=== PATIENT | female | born 1975 | race Caucasian/White ===

== ENCOUNTER 2022-09-13 18:57 | Emergency (ER) | payer OTHER, SELFPAY ==
[2022-09-13 19:04] VITALS: BP 129/83; PULSE 91; RESP 18; TEMP 36.7; O2SAT 95; BMI 51.1
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
[2022-09-13] MEDS: ONDANSETRON PF 4 MG/2 ML VIAL IV (19:31)
[2022-09-13] MEDS: 0.9 % SODIUM CHLORIDE 1,000 ML 1000 ML IV (19:31)
[2022-09-13] MEDS: MORPHINE SULFATE 4 MG/ML VIAL IV ×2 (19:31→22:07)
[2022-09-13 20:01] LABS: Basophils Absolute Auto 0.1 10^3/uL (0.0-0.1); Basophils Percent Auto 0.9 % (0.2-2.0); Eosinophils Absolute Auto 0.2 10^3/uL (0.0-0.7); Eosinophils Percent Auto 1.6 % (0.9-7.0); Hematocrit 43.2 % (36.0-48.0); Hemoglobin 14.8 g/dL (12.0-16.0); Immature Granulocytes Abs Auto 0.04 10^3/uL (0.00-0.03); Immature Granulocytes Pct Auto 0.4 % (0.0-0.5); Lymphocytes Absolute Auto 2.9 10^3/uL (1.2-3.8); Lymphocytes Percent Auto 28.1 % (20.5-60.0); Mean Corpuscular HGB Conc 34.3 g/dL (29.9-35.2); Mean Corpuscular Hemoglobin 31.7 pg (26.7-34.0); Mean Corpuscular Volume 92.5 fL (81.0-99.0); Mean Platelet Volume 10.1 fL (9.5-13.5); Monocytes Absolute Auto 0.4 10^3/uL (0.3-0.8); Monocytes Percent Auto 4.2 % (1.7-12.0); Neutrophils Absolute Auto 6.8 10^3/uL (1.4-6.5); Neutrophils Percent Auto 64.8 % (43.0-75.0); Platelet Count 291 10^3/uL (150-450); Red Blood Count 4.67 10^6/uL (4.20-5.40); Red Cell Distribution Width 12.9 % (11.0-15.0); White Blood Count 10.4 10^3/uL (4.0-11.0)
[2022-09-13 20:23] LABS: Alanine Aminotransferase 18 U/L (14-59); Albumin Globulin Ratio 1.2; Albumin Level 3.8 g/dL (3.4-5.0); Alkaline Phosphatase 93 U/L (46-116); Anion Gap 13.5; Aspartate Amino Transferase 53 U/L (15-37); Bilirubin Total 0.2 mg/dL (0.2-1.0); Calcium 8.9 mg/dL (8.5-10.1); Carbon Dioxide 26.1 mmol/L (21.0-32.0); Chloride 106 mmol/L (98-107); Estimated GFR (African America >60 (>=60); Estimated GFR (Non-African Ame >60 (>=60); Ethanol 183 mg/dL; Globulin 3.3 g/dL; Glucose 117 mg/dL (74-106); Sodium 143 mmol/L (136-145); Total Protein 7.1 g/dL (6.4-8.2); Troponin I High Sensitivity 7.6 pg/mL (4.0-51.3)
[2022-09-13 20:26] LABS: Potassium 2.6 mmol/L (3.5-5.1)
[2022-09-13] MEDS: ADACEL DIPH,PERTUSS(ACELL),TET VAC/PF 0.5 ML ADULT SYRINGE IM (20:26)
[2022-09-13] MEDS: POTASSIUM CHLORIDE 10 MEQ ER TABLET 40 MEQ PO (22:07)
[2022-09-13] MEDS: BACITRACIN OINTMENT 28.4 GM TUBE 1 APPLIC TOPICAL (23:04)
--- NOTE | 2022-09-13 23:21 | PC.NURSE ---
Patient sutures to right little finger dressed with bacitracin, telfa and john taped with 4th digit. moderate bleeding controlled. abrasions to right knee, right hands, left elbow all had bacitracin applied and dressed with sterile dressing.
== END 2022-09-13 23:15 | disposition home or self-care (01) ==
PROVIDERS: Emergency Provider Emergency Medicine; PCP Family Medicine
DX: S61.216A Laceration without foreign body of right little finger without damage to nail, initial encounter (principal); S01.512A Laceration without foreign body of oral cavity, initial encounter; S00.81XA Abrasion of other part of head, initial encounter; S60.511A Abrasion of right hand, initial encounter; S50.312A Abrasion of left elbow, initial encounter; S50.311A Abrasion of right elbow, initial encounter; S80.212A Abrasion, left knee, initial encounter; S80.211A Abrasion, right knee, initial encounter; T14.8XXA Other injury of unspecified body region, initial encounter; E87.6 Hypokalemia; F10.129 Alcohol abuse with intoxication, unspecified; Y90.6 Blood alcohol level of 120-199 mg/100 ml; F17.210 Nicotine dependence, cigarettes, uncomplicated; Z23 Encounter for immunization; Z79.01 Long term (current) use of anticoagulants
CPT/HCPCS: 12002; 12011; 36415; 70450; 70486; 71045; 72125; 73070; 73100; 73120; 73560; 80053; 80320; 84484; 85025; 90471; 90715; 96374; 96375; 96376; 99285

== ENCOUNTER 2022-09-26 10:25 | Outpatient (OUT) | payer OTHER, SELFPAY ==
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
== END 2022-09-26 10:26 | disposition home or self-care (01) ==
LOC: RAD 10:25
PROVIDERS: PCP Family Medicine; Visit Provider Nurse Practitioner Family
DX: M79.632 Pain in left forearm (principal)
CPT/HCPCS: 73090

== ENCOUNTER 2022-10-06 20:36 | Emergency (ER) | payer OTHER, SELFPAY ==
[2022-10-06 20:41] VITALS: BP 147/100; PULSE 80; RESP 16; TEMP 36.7; O2SAT 95; BMI 23.3
--- NOTE | 2022-10-06 20:50 | XR_ITS ---
The [address] [address] Patient Name: MARLENE WIGGINS MRN: [id number] date: 1975 Sex: F Assigned Patient Location: ER Current Patient Location: ER Accession/Order Number: [id number] Exam Date: 10/06/2022 20:58 Report Date: 10/06/2022 21:36 At the request of: KATHERINE GARCIA Procedure: XR acute abdomen series EXAM: XR acute abdomen series HISTORY: Vomiting COMPARISON: None. TECHNIQUE: 3 AP radiographs of the chest, abdomen and pelvis FINDINGS: CHEST: No pneumothorax, pleural effusion or consolidation. Normal heart size. No acute osseous abnormality. ABDOMEN/PELVIS: Surgical clips project over the right upper quadrant. Moderate colonic stool burden with a nonobstructive bowel gas pattern. No intra-abdominal free air. No intra-abdominal stone or calcification. No acute osseous abnormality of the abdomen or pelvis. XR/XR acute abdomen series IMPRESSION: No acute cardiopulmonary process. Moderate colonic stool burden with a nonobstructive bowel gas pattern. Electronically authenticated by: ENEIDA WOO Date: 10/06/2022 21:36
--- NOTE | 2022-10-06 20:51 | ED.GENADUL1 ---
HPI - General Adult General Chief complaint: Nausea/Vomiting/Diarrhea Stated complaint: VOMITTING BILE Time Seen by Provider: 10/06/22 20:36 Source: patient Mode of arrival: walk-in History of Present Illness HPI narrative: patient is a 47-year-old female who presents to the emergency department for the evaluation of nausea and vomiting for the last day. She states yesterday she made tuna noodle casserole for dinner and approximately one hour after eating she developed multiple episodes of emesis and cramping across the upper abdomen. She has had a previous hysterectomy and previous cholecystectomy. She reports chills but has not had any objective fevers. She denies diarrhea or urinary symptoms. She has no significant abdominal pain at this time. No flank or back pain. She states she continues to vomit bile today. No medications prior to arrival. No sick contacts in the home. She denies cough, congestion or other flulike illness Related Data Home Medications Medication Instructions Recorded Confirmed aspirin 81 mg chewable tablet 81 mg PO DAILY 10/06/22 10/06/22 cyclobenzaprine 5 mg tablet 5 mg PO DAILY 10/06/22 10/06/22 fluticasone propionate 50 2 spray intranasal DAILY 10/06/22 10/06/22 mcg/actuation nasal spray,suspension hydrochlorothiazide 25 mg tablet 25 mg PO DAILY 10/06/22 10/06/22 ibuprofen 600 mg tablet 600 mg PO DAILY 10/06/22 10/06/22 omeprazole 40 mg capsule,delayed 40 mg PO DAILY 10/06/22 10/06/22 release potassium chloride 20 mEq 20 meq PO DAILY 10/06/22 10/06/22 tablet,extended release Previous Rx's Medication Instructions Recorded famotidine 20 mg tablet (Pepcid) 20 mg PO BID #10 tabs 10/06/22 ondansetron 4 mg disintegrating 4 mg PO Q6H PRN nausea and 10/06/22 tablet vomiting #12 tabs polyethylene glycol 3350 17 17 g PO DAILY #119 grams 10/06/22 gram/dose oral powder (Miralax) Allergies Allergy/AdvReac Type Severity Reaction Status Date / Time latex Allergy Verified 10/06/22 20:47 Penicillins Allergy Verified 10/06/22 20:47 CITREX Allergy Uncoded 10/06/22 20:47 Review of Systems ROS Constitutional Reports: chills; Denies: fever Ears, nose, mouth, and throat Denies: throat pain Cardiovascular Denies: chest pain Respiratory Denies: shortness of breath or cough Gastrointestinal Reports: abdominal pain, nausea and vomiting; Denies: diarrhea Genitourinary Denies: painful urination Musculoskeletal Denies: back pain or neck pain Integumentary/Breast Denies: rash Neurological Denies: headache PFSH PFSH Social History Smoking status: Current every day smoker Exam Narrative Exam Narrative: Gen.: Awake, alert, in no distress Head: Normocephalic, atraumatic ENT: Moist mucous membranes Respiratory: No respiratory distress, lungs clear bilaterally Cardio: Regular rate and rhythm Gastrointestinal: Abdomen is soft, nondistended and minimally tender in the epigastrium with no guarding or rebound Extremities: Moves extremities equally Psych: Normal mood and affect Neuro: No focal neuro deficit Skin: Warm, dry, intact Constitutional Vital Signs, click to edit/add: Last Vital Signs Temp 98.1 F 10/06/22 20:41 Pulse 80 10/06/22 20:41 Resp 16 10/06/22 20:41 BP 147/100 H 10/06/22 20:41 Pulse Ox 95 10/06/22 20:41 O2 Del Method Room Air 10/06/22 20:41 Course Vital Signs Vital signs: Vital Signs Temperature 98.1 F 10/06/22 20:41 Pulse Rate 80 10/06/22 20:41 Respiratory Rate 16 10/06/22 20:41 Blood Pressure 147/100 H 10/06/22 20:41 Pulse Oximetry 95 10/06/22 20:41 Oxygen Delivery Method Room Air 10/06/22 20:41 Temperature 98.1 F 10/06/22 20:41 Pulse Rate 80 10/06/22 20:41 Respiratory Rate 16 10/06/22 20:41 Blood Pressure 147/100 H 10/06/22 20:41 Pulse Oximetry 95 10/06/22 20:41 Oxygen Delivery Method Room Air 10/06/22 20:41 Medical Decision Making MDM Narrative Medical decision making narrative: patient treated with IV fluids, Zofran, Pepcid. Lab studies show hypokalemia, patient takes potassium supplementation daily and her previous potassium was 2.6 in this emergency department on her last visit. nausea improved and she was able to tolerate the oral potassium supplementation in the Emergency Room. She will be discharged home with Ines Pepcid. Her abdominal x-rays also show moderate stool burden so she is encouraged to take MiraLAX [id number] for this. Abdomen is soft and benign in the Emergency Room. Follow-up with PCP and return to the Emergency Room if symptoms change or worsen. at time of discharge, patient states that she still has Vicryl sutures in her lower lip from her previous Emergency Room visit when a running suture was placed for a lip laceration. Using forceps and suture removal scissors, I removed the Vicryl suture that has been in place for three weeks. There was a small area of bleeding after removing the Vicryl sutures, no dehiscence or open lacerations noted. No evidence of wound infection Medical Records Medical records reviewed: Yes I reviewed the patient's medical records Lab Data Lab results reviewed: Yes I reviewed the patient's lab results Labs: Lab Results 10/06/22 Range/Units 20:45 WBC 11.0 (4.0-11.0) 10^3/uL RBC 5.07 (4.20-5.40) 10^6/uL Hgb 15.8 (12.0-16.0) g/dL Hct 46.6 (36.0-48.0) % MCV 91.9 (81.0-99.0) fL MCH 31.2 (26.7-34.0) pg MCHC 33.9 (29.9-35.2) g/dL RDW 13.2 (11.0-15.0) % Plt Count 301 (150-450) 10^3/uL MPV 10.2 (9.5-13.5) fL Neut % (Auto) 81.3 H (43.0-75.0) % Lymph % (Auto) 14.2 L (20.5-60.0) % Armstrong % (Auto) 3.7 (1.7-12.0) % Eos % (Auto) 0.1 L (0.9-7.0) % Baso % (Auto) 0.3 (0.2-2.0) % Neut # (Auto) 9.0 H (1.4-6.5) 10^3/uL Lymph # (Auto) 1.6 (1.2-3.8) 10^3/uL Armstrong # (Auto) 0.4 (0.3-0.8) 10^3/uL Eos # (Auto) 0.0 (0.0-0.7) 10^3/uL Baso # (Auto) 0.0 (0.0-0.1) 10^3/uL Abs Immat Gran (auto) 0.04 H (0.00-0.03) 10^3/uL Imm/Tot Granulo (auto) 0.4 (0.0-0.5) % Sodium 142 (136-145) mmol/L Potassium 2.9 L* (3.5-5.1) mmol/L Chloride 103 (98-107) mmol/L Carbon Dioxide 30.4 (21.0-32.0) mmol/L Anion Gap 11.5 BUN 19.0 H (7.0-18.0) mg/dL Creatinine 0.82 (0.55-1.02) mg/dL Est GFR ( Amer) >60 (>=60) Est GFR (Non-Af Amer) >60 (>=60) BUN/Creatinine Ratio 23.2 Glucose 126 H (74-106) mg/dL Lactate 1.4 (0.4-2.0) mmol/L Calcium 9.6 (8.5-10.1) mg/dL Total Bilirubin 0.7 (0.2-1.0) mg/dL AST 12 L (15-37) U/L ALT 22 (14-59) U/L Alkaline Phosphatase 76 (46-116) U/L Total Protein 8.1 (6.4-8.2) g/dL Albumin 4.2 (3.4-5.0) g/dL Globulin 3.9 g/dL Albumin/Globulin Ratio 1.1 Lipase 82.0 (73.0-393.0) U/L Imaging Data Abdominal x-ray: Attestation: I have reviewed the pertinent imaging results. Radiologist's impression: Procedure: XR acute abdomen series EXAM: XR acute abdomen series HISTORY: Vomiting COMPARISON: None. TECHNIQUE: 3 AP radiographs of the chest, abdomen and pelvis FINDINGS: CHEST: No pneumothorax, pleural effusion or consolidation. Normal heart size. No acute osseous abnormality. ABDOMEN/PELVIS: Surgical clips project over the right upper quadrant. Moderate colonic stool burden with a nonobstructive bowel gas pattern. No intra-abdominal free air. No intra-abdominal stone or calcification. No acute osseous abnormality of the abdomen or pelvis. IMPRESSION: No acute cardiopulmonary process. Moderate colonic stool burden with a nonobstructive bowel gas pattern. Electronically authenticated by: ENEIDA WOO Date: 10/06/2022 21:36 Discharge Plan Discharge Chief Complaint: Nausea/Vomiting/Diarrhea Clinical Impression: Nausea and vomiting, Acute hypokalemia Patient Disposition: Home, Self-Care Time of Disposition Decision: 21:41 Condition: Good Prescriptions / Home Meds: New famotidine [Pepcid] 20 mg tablet 20 mg PO BID Qty: 10 0RF ondansetron 4 mg tablet,disintegrating 4 mg PO Q6H PRN (Reason: nausea and vomiting) Qty: 12 0RF polyethylene glycol 3350 [Miralax] 17 gram/dose powder 17 g PO DAILY Qty: 119 0RF No Action aspirin 81 mg tablet,chewable 81 mg PO DAILY fluticasone propionate 50 mcg/actuation spray,suspension 2 spray INTRANASAL DAILY hydrochlorothiazide 25 mg tablet 25 mg PO DAILY ibuprofen 600 mg tablet 600 mg PO DAILY omeprazole 40 mg capsule,delayed release(DR/EC) 40 mg PO DAILY cyclobenzaprine 5 mg tablet 5 mg PO DAILY potassium chloride 20 mEq tablet extended release 20 meq PO DAILY Instructions: Hypokalemia (ED), Acute Nausea and Vomiting (DC) Stand Alone Forms: Portal Instructions Referrals: Mahin Boone MD [Primary Care Provider] - 1 week Discharge Date/Time: 10/06/22 21:57
[2022-10-06 20:59] LABS: Basophils Percent Auto 0.3 % (0.2-2.0); Eosinophils Percent Auto 0.1 % (0.9-7.0); Hematocrit 46.6 % (36.0-48.0); Hemoglobin 15.8 g/dL (12.0-16.0); Immature Granulocytes Abs Auto 0.04 10^3/uL (0.00-0.03); Immature Granulocytes Pct Auto 0.4 % (0.0-0.5); Lymphocytes Absolute Auto 1.6 10^3/uL (1.2-3.8); Lymphocytes Percent Auto 14.2 % (20.5-60.0); Mean Corpuscular HGB Conc 33.9 g/dL (29.9-35.2); Mean Corpuscular Hemoglobin 31.2 pg (26.7-34.0); Mean Corpuscular Volume 91.9 fL (81.0-99.0); Mean Platelet Volume 10.2 fL (9.5-13.5); Monocytes Absolute Auto 0.4 10^3/uL (0.3-0.8); Monocytes Percent Auto 3.7 % (1.7-12.0); Neutrophils Percent Auto 81.3 % (43.0-75.0); Platelet Count 301 10^3/uL (150-450); Red Blood Count 5.07 10^6/uL (4.20-5.40); Red Cell Distribution Width 13.2 % (11.0-15.0)
[2022-10-06] MEDS: FAMOTIDINE/PF 20 MG/2 ML VIAL IV (21:07)
[2022-10-06] MEDS: ONDANSETRON PF 4 MG/2 ML VIAL IV (21:07)
[2022-10-06] MEDS: 0.9 % SODIUM CHLORIDE 1,000 ML 999 ML IV (21:08)
[2022-10-06 21:09] LABS: Alanine Aminotransferase 22 U/L (14-59); Albumin Globulin Ratio 1.1; Albumin Level 4.2 g/dL (3.4-5.0); Alkaline Phosphatase 76 U/L (46-116); Anion Gap 11.5; Aspartate Amino Transferase 12 U/L (15-37); BUN Creatinine Ratio 23.2; Bilirubin Total 0.7 mg/dL (0.2-1.0); Calcium 9.6 mg/dL (8.5-10.1); Carbon Dioxide 30.4 mmol/L (21.0-32.0); Chloride 103 mmol/L (98-107); Estimated GFR (African America >60 (>=60); Estimated GFR (Non-African Ame >60 (>=60); Globulin 3.9 g/dL; Glucose 126 mg/dL (74-106); Sodium 142 mmol/L (136-145); Total Protein 8.1 g/dL (6.4-8.2)
[2022-10-06 21:12] LABS: Lactate/Lactic Acid 1.4 mmol/L (0.4-2.0)
[2022-10-06 21:13] LABS: Potassium 2.9 mmol/L (3.5-5.1)
[2022-10-06] MEDS: POTASSIUM CHLORIDE 10 MEQ ER TABLET 40 MEQ PO (21:33)
== END 2022-10-06 21:57 | disposition home or self-care (01) ==
PROVIDERS: Physician Assistant; Emergency Provider Emergency Medicine; PCP Family Medicine
DX: E87.6 Hypokalemia (principal); R11.2 Nausea with vomiting, unspecified; Z79.899 Other long term (current) drug therapy; Z79.82 Long term (current) use of aspirin; F17.210 Nicotine dependence, cigarettes, uncomplicated
CPT/HCPCS: 36415; 74022; 80053; 83605; 83690; 85025; 96374; 96375; 99285

== ENCOUNTER 2022-11-07 11:33 | Emergency (ER) | payer OTHER, SELFPAY ==
[2022-11-07 11:39] VITALS: BP 142/84; PULSE 70; RESP 16; TEMP 36.5; O2SAT 97; BMI 23.2
--- NOTE | 2022-11-07 12:21 | ED_ITS ---
HPI - General Adult General Chief complaint: Ear Stated complaint: right ear pain Time Seen by Provider: 11/07/22 11:44 Source: patient and family Mode of arrival: walk-in Limitations: no limitations History of Present Illness HPI narrative: Patient is a 47-year-old female who is presenting to the Emergency Room with chief complaint of right ear ache/pain since last . Patient has some mild right facial pain as well. Patient has been taking sinus congestion medication, Flonase, also using Motrin and Tylenol. Patient's been using ALLERGY medication as well. Patient did have traumatic fall weeks ago with facial injuries, nothing acute. Patient has no redness to the right ear. Patient has no new recent trauma or fall. Patient was due to have a cavity filled approximately 6 weeks ago when patient had traumatic injury, a cavity repair was canceled secondary to facial injury. Patient multiple stitches to her lower lip. Patient has no chest pain or shortness of breath. No fever or chills. No other acute complaints. Patient is here with her fianc? at bedside. Patient does not have ENT to follow-up or One that she has seen previously. No nausea, vomiting, diarrhea, rash, or any other acute complaints. . All systems are negative except as noted/marked. All systems reviewed and otherwise negative. . Nurses note and vital signs reviewed and patient is not hypoxic. General: The patient appears well and in no apparent distress. Patient is resting comfortably on cart. Patient is not toxic, lethargic, or listless Skin: Warm, dry, no pallor noted. There is no rash noted. No petechiae, purp ura. Head: Normocephalic, atraumatic; No tenderness to palpation to bilateral frontal or maxillary sinus. No midline or paracervical tenderness to palpation. Full range of motion of cervical spinal no difficulty. Eye: Normal conjunctiva, no drainage, EOMI. PERRL Ears, Nose, Mouth, and Throat: oral mucosa is moist. Nares patent. Mouth without vesicles. Patient's bilateral tympanic membrane shows no erythema, perforation or bulging. No thyromegaly or lymphadenopathy. Cardiovascular: Regular Rate and Rhythm, no murmur, gallop, rub Respiratory: Patient is in no distress, no accessory muscle use, lungs are clear to auscultation, no wheezing, rales or rhonchi Back: non-tender, GI: soft, Musculoskeletal: Patient has full range of motion of all of the extremities, no motor, sensory, or focal neurological deficits Neurological: A&O x3, normal speech Psychiatric: Cooperative Related Data Home Medications Medication Instructions Recorded Confirmed aspirin 81 mg chewable tablet 81 mg PO DAILY 10/06/22 10/06/22 cyclobenzaprine 5 mg tablet 5 mg PO DAILY 10/06/22 10/06/22 fluticasone propionate 50 2 spray intranasal DAILY 10/06/22 10/06/22 mcg/actuation nasal spray,suspension hydrochlorothiazide 25 mg tablet 25 mg PO DAILY 10/06/22 10/06/22 ibuprofen 600 mg tablet 600 mg PO DAILY 10/06/22 10/06/22 omeprazole 40 mg capsule,delayed 40 mg PO DAILY 10/06/22 10/06/22 release potassium chloride 20 mEq 20 meq PO DAILY 10/06/22 10/06/22 tablet,extended release Previous Rx's Medication Instructions Recorded famotidine 20 mg tablet (Pepcid) 20 mg PO BID #10 tabs 10/06/22 ondansetron 4 mg disintegrating 4 mg PO Q6H PRN nausea and 10/06/22 tablet vomiting #12 tabs polyethylene glycol 3350 17 17 g PO DAILY #119 grams 10/06/22 gram/dose oral powder (Miralax) Allergies Allergy/AdvReac Type Severity Reaction Status Date / Time latex Allergy Verified 11/07/22 11:39 Penicillins Allergy Verified 11/07/22 11:39 CITREX Allergy Uncoded 11/07/22 11:39 PFSH PFSH Social History Smoking status: Current every day smoker Exam Constitutional Vital Signs, click to edit/add: Last Vital Signs Temp 97.7 F 11/07/22 11:39 Pulse 70 11/07/22 11:39 Resp 16 11/07/22 11:39 BP 142/84 H 11/07/22 11:39 Pulse Ox 97 11/07/22 11:39 O2 Del Method Room Air 11/07/22 11:39 Course Vital Signs Vital signs: Vital Signs Temperature 97.7 F 11/07/22 11:39 Pulse Rate 70 11/07/22 11:39 Respiratory Rate 16 11/07/22 11:39 Blood Pressure 142/84 H 11/07/22 11:39 Pulse Oximetry 97 11/07/22 11:39 Oxygen Delivery Method Room Air 11/07/22 11:39 Temperature 97.7 F 11/07/22 11:39 Pulse Rate 70 11/07/22 11:39 Respiratory Rate 16 11/07/22 11:39 Blood Pressure 142/84 H 11/07/22 11:39 Pulse Oximetry 97 11/07/22 11:39 Oxygen Delivery Method Room Air 11/07/22 11:39 Medical Decision Making MDM Narrative Medical decision making narrative: Patient has no acute findings on physical exam. Patient was recommended to follow-up with her dentist to have a cavity fixed, that may be a source of her right ear pain. Patient has no significant swelling to the right side of her face. No signs of salivary duct stone. Patient looks well. Patient was educated to start using ice to help with any, pain or swelling that may start. Patient will continue ALLERGY medication. Patient stating that at discharge, she was having a clear cough on and Monday, yellowish cough today. Education on treating symptoms, no indication for antibiotics at this time in education and antibiotics were discussed at bedside. Patient understands, follow-up with PCP. No questions at discharge. Discharge Plan Discharge Chief Complaint: Ear Clinical Impression: Atypical face pain, Right ear pain Patient Disposition: Home, Self-Care Condition: Good Prescriptions / Home Meds: No Action aspirin 81 mg tablet,chewable 81 mg PO DAILY fluticasone propionate 50 mcg/actuation spray,suspension 2 spray INTRANASAL DAILY hydrochlorothiazide 25 mg tablet 25 mg PO DAILY ibuprofen 600 mg tablet 600 mg PO DAILY omeprazole 40 mg capsule,delayed release(DR/EC) 40 mg PO DAILY cyclobenzaprine 5 mg tablet 5 mg PO DAILY potassium chloride 20 mEq tablet extended release 20 meq PO DAILY famotidine [Pepcid] 20 mg tablet 20 mg PO BID Qty: 10 0RF ondansetron 4 mg tablet,disintegrating 4 mg PO Q6H PRN (Reason: nausea and vomiting) Qty: 12 0RF polyethylene glycol 3350 [Miralax] 17 gram/dose powder 17 g PO DAILY Qty: 119 0RF Instructions: Earache (ED), Atypical Facial Pain (ED) Additional Instructions: Call your dentist and make a follow-up appointment with her dentist. Use ice 20 minutess on, 20 minutes off, do not use heat. Continue sinus congestion medication at home as you are already doing. Follow-up with PCP in the next 1-2 weeks if no improvement Stand Alone Forms: Portal Instructions Referrals: Mahin Boone MD [Primary Care Provider] - 1 week
== END 2022-11-07 12:42 | disposition home or self-care (01) ==
PROVIDERS: Emergency Provider Emergency Medicine; PCP Family Medicine
DX: H92.01 Otalgia, right ear (principal); G50.1 Atypical facial pain; Z79.899 Other long term (current) drug therapy; Z79.82 Long term (current) use of aspirin; F17.210 Nicotine dependence, cigarettes, uncomplicated
CPT/HCPCS: 99281

== ENCOUNTER 2023-02-26 12:25 | Emergency (ER) | payer OTHER, SELFPAY ==
[2023-02-26 12:29] VITALS: BP 143/98; PULSE 94; RESP 16; TEMP 36.9; O2SAT 99; BMI 24.4
--- NOTE | 2023-02-26 12:38 | ED.URI1 ---
HPI - URI/Sore Throat General Chief Complaint: Upper Respiratory Infection Stated Complaint: urti Time Seen by Provider: 02/26/23 12:27 Source: patient Limitations: no limitations History of Present Illness HPI Narrative: [age] year old female presents for cough and congestion. She's had a for three days. She had some nausea and vomiting as well. No diarrhea or documented fever. She felt feverish. Related Data Home Medications Medication Instructions Recorded Confirmed aspirin 81 mg chewable tablet 81 mg PO DAILY 10/06/22 10/06/22 cyclobenzaprine 5 mg tablet 5 mg PO DAILY 10/06/22 10/06/22 fluticasone propionate 50 2 spray intranasal DAILY 10/06/22 10/06/22 mcg/actuation nasal spray,suspension hydrochlorothiazide 25 mg tablet 25 mg PO DAILY 10/06/22 10/06/22 ibuprofen 600 mg tablet 600 mg PO DAILY 10/06/22 10/06/22 omeprazole 40 mg capsule,delayed 40 mg PO DAILY 10/06/22 10/06/22 release potassium chloride 20 mEq 20 meq PO DAILY 10/06/22 10/06/22 tablet,extended release Previous Rx's Medication Instructions Recorded famotidine 20 mg tablet (Pepcid) 20 mg PO BID #10 tabs 10/06/22 ondansetron 4 mg disintegrating 4 mg PO Q6H PRN nausea and 10/06/22 tablet vomiting #12 tabs polyethylene glycol 3350 17 17 g PO DAILY #119 grams 10/06/22 gram/dose oral powder (Miralax) benzonatate 100 mg capsule 100 mg PO TID PRN cough #20 caps 02/26/23 loratadine 5 mg-pseudoephedrine ER 1 tab PO Q12H PRN nasal congestion 02/26/23 120 mg tablet,extended #20 tabs release,12hr (Claritin-D 12 Hour) Allergies Allergy/AdvReac Type Severity Reaction Status Date / Time latex Allergy Verified 11/07/22 11:39 Penicillins Allergy Verified 11/07/22 11:39 CITREX Allergy Uncoded 11/07/22 11:39 Review of Systems ROS Narrative A ten point review of systems is negative except as noted above. PFSH PFSH Social History Smoking status: Current some day smoker Exam Narrative Exam Narrative: Nurses note and vital signs reviewed and patient is not hypoxic. General: The patient appears well and in no apparent distress. Patient is resting comfortably on cart. Skin: Warm, dry, no pallor noted. There is no rash noted. Head: Normocephalic, atraumatic Eye: Normal conjunctiva, no drainage Ears, Nose, Mouth, and Throat: oral mucosa is moist. Nares patent. Cardiovascular: Regular Rate and Rhythm Respiratory: Patient is in no distress, no accessory muscle use, lungs are clear to auscultation, no wheezing, rales or rhonchi Back: non-tender GI: soft and nontender Musculoskeletal: The patient has no evidence of calf tenderness, no pitting edema, symmetrical pulses noted bilaterally Neurological: A&O, normal speech Psychiatric: Cooperative Constitutional Vital Signs, click to edit/add: Last Vital Signs Temp 98.5 F 02/26/23 12:29 Pulse 94 H 02/26/23 12:29 Resp 16 02/26/23 12:29 BP 143/98 H 02/26/23 12:29 Pulse Ox 99 02/26/23 12:29 O2 Del Method Room Air 02/26/23 12:29 Course Vital Signs Vital signs: Vital Signs Temperature 98.5 F 02/26/23 12:29 Pulse Rate 94 H 02/26/23 12:29 Respiratory Rate 16 02/26/23 12:29 Blood Pressure 143/98 H 02/26/23 12:29 Pulse Oximetry 99 02/26/23 12:29 Oxygen Delivery Method Room Air 02/26/23 12:29 Temperature 98.5 F 02/26/23 12:29 Pulse Rate 94 H 02/26/23 12:29 Respiratory Rate 16 02/26/23 12:29 Blood Pressure 143/98 H 02/26/23 12:29 Pulse Oximetry 99 02/26/23 12:29 Oxygen Delivery Method Room Air 02/26/23 12:29 MDM - URI/Sore Throat MDM Narrative Medical decision making narrative: Covid and influenza tests are negative. She'll be treated symptomatically. My clinical impression is that she has a viral illness. Antibiotic not indicated. Treatment diagnosis and follow-up were discussed with the patient. Differential Diagnosis Differential diagnosis: Likely upper respiratory infection, viral infection, influenza and other (Covid) Lab Data Attestation: I reviewed the patient's lab results. Labs: Lab Results 02/26/23 Range/Units 12:40 Influenza Type A Ag Negative Influenza Type B Ag Negative SARS-CoV-2 Ag (CV2AG) Negative (NEGATIVE) Discharge Plan Discharge Chief Complaint: Upper Respiratory Infection Clinical Impression: Upper respiratory infection Patient Disposition: Home, Self-Care Time of Disposition Decision: 13:04 Condition: Good Mode of Transportation: Private Vehicle Prescriptions / Home Meds: New benzonatate 100 mg capsule 100 mg PO TID PRN (Reason: cough) Qty: 20 0RF Claritin-D 12 Hour 5-120 mg tablet extended release 12 hr 1 tab PO Q12H PRN (Reason: nasal congestion) Qty: 20 0RF No Action aspirin 81 mg tablet,chewable 81 mg PO DAILY fluticasone propionate 50 mcg/actuation spray,suspension 2 spray INTRANASAL DAILY hydrochlorothiazide 25 mg tablet 25 mg PO DAILY ibuprofen 600 mg tablet 600 mg PO DAILY omeprazole 40 mg capsule,delayed release(DR/EC) 40 mg PO DAILY cyclobenzaprine 5 mg tablet 5 mg PO DAILY potassium chloride 20 mEq tablet extended release 20 meq PO DAILY famotidine [Pepcid] 20 mg tablet 20 mg PO BID Qty: 10 0RF ondansetron 4 mg tablet,disintegrating 4 mg PO Q6H PRN (Reason: nausea and vomiting) Qty: 12 0RF polyethylene glycol 3350 [Miralax] 17 gram/dose powder 17 g PO DAILY Qty: 119 0RF Instructions: Upper Respiratory Infection (ED), Viral Syndrome (ED) Stand Alone Forms: Portal Instructions Referrals: Mahin Boone MD [Primary Care Provider] - 1 week
[2023-02-26] MEDS: ONDANSETRON 4 MG RAPDIS TABLET SL (12:48)
[2023-02-26 12:56] LABS: Influenza Virus A Antigen Negative; Influenza Virus B Antigen Negative; Internal Control Within Normal Limits; SARS-CoV-2 Ag NEGATIVE (NEGATIVE)
== END 2023-02-26 14:23 | disposition home or self-care (01) ==
PROVIDERS: Emergency Provider Emergency Medicine; PCP Family Medicine
DX: J06.9 Acute upper respiratory infection, unspecified (principal); Z79.82 Long term (current) use of aspirin; Z79.899 Other long term (current) drug therapy; F17.210 Nicotine dependence, cigarettes, uncomplicated; Z20.822 Contact with and (suspected) exposure to COVID-19
CPT/HCPCS: 87804; 87811; 99284; Q0162

== ENCOUNTER 2023-05-18 11:01 | Outpatient (RCR) | payer OTHER, SELFPAY | END 2023-08-01 12:34 | disposition home or self-care (01) | LOC: OT 11:01 | PROVIDERS: PCP Family Medicine; Visit Provider Orthopaedic Surgery | DX: S60.221D Contusion of right hand, subsequent encounter (principal); S61.411D Laceration without foreign body of right hand, subsequent encounter; M79.632 Pain in left forearm; M79.641 Pain in right hand | CPT/HCPCS: 97010; 97014; 97018; 97035; 97140; 97165; 97530 ==

== ENCOUNTER 2024-02-16 09:32 | Outpatient (OUT) | payer OTHER, SELFPAY ==
--- OUTSIDE RECORDS SUMMARY | 2024-02-16 09:54 | XMS_ITS | CCD ---
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 [facility] Comment on above: Performed By: #### A MY, CMP, LIPA #### [facility] [address] [address] [address] Apurva Garcia EGFR-AF AFGHAN >60 Normal >=60 [facility] Comment on above: Performed By: #### A MY, CMP, LIPA #### [facility] [address] [address] [address] Apurva Garcia EGFR-NON AF AFGHAN >60 Normal >=60 [facility] Comment on above: Performed By: #### A MY, CMP, LIPA #### [facility] [address] [address] [address] Apurva Garcia Glucose [Mass/Vol] 96 mg/dL Normal 74-106 [facility] Comment on above: Performed By: #### A MY, CMP, LIPA #### [facility] [address] [address] [address] Apurva Garcia Potassium [Moles/Vol] 3.3 mmol/L Critically low 3.5-5.1 [facility] Comment on above: Performed By: #### A MY, CMP, LIPA #### [facility] [address] [address] [address] Apurva Garcia Sodium [Moles/Vol] 139 mmol/L Normal 136-145 [facility] Comment on above: Performed By: #### A MY, CMP, LIPA #### [facility] [address] [address] [address] Apurva Garcia Urea nitrogen [Mass/Vol] 17.0 mg/dL Normal 7.0-18.0 [facility] Comment on above: Performed By: #### A MY, CMP, LIPA #### [facility] [address] [address] [address] Apurva Garcia Urea nitrogen/Creatinine [Mass ratio] 25.8 mg/mg Normal [facility] Comment on above: Performed By: #### A MY, CMP, LIPA #### [facility] [address] [address] [address] Apurva Garcia TROPONIN, HIGH SENSITIVITYon 02-08-2022 HSTROP 10.0 pg/mL Normal 4.0-51.3 [facility] Comment on above: Result Comment: CUT- OFF POINTS HAVE BEEN ESTABLISHED BASED ON THE FOURTH UNIVERSAL DEFINITIONS OF MYOCARDIAL INFARCTION. THE UPPER REFERENCE LIMIT (URL) OF TROPONIN, DEFINED THE 99TH PERCENTILE OF cTnI DISTRIBUTION IN A REFERENCE POPULATION, HAS BEEN CONFIRMED THE DECISION THRESHOLD FOR [place] DIAGNOSIS. Performed By: #### A MY, CMP, LIPA #### [facility] [address] [place] [address] Dr. Apurva Garcia ED Note-Physicianon 10-13-19 ED Note-Physician [id number] D:127 Normal [facility] AMMONIAon 10-10-2021 Ammonia (P) [Moles/Vol] 28 umol/L Normal 11-32 [facility] Comment on above: Performed By: #### A MY, CMP, LIPA #### [facility] [address] [place] [address] Dr. Apurva Garcia AMYLASEon 10-10-2021 Amylase [Catalytic activity/Vol] 41 U/L Normal 25-115 [facility] Comment on above: Performed By: #### A MY, CMP, LIPA #### [facility] [address] [place] [address] Dr. Apurva Garcia CBC AUTO DIFFon 10-10-2021 BASO # 0.1 103/ul Normal 0.0-0.1 [facility] Comment on above: Performed By: #### A MY, CMP, LIPA #### [facility] [address] [place] [address] Dr. Apurva Garcia Basophils/100 WBC (Bld) 0.9 % Normal 0.2-2.0 [facility] Comment on above: Performed By: #### A MY, CMP, LIPA #### [facility] [address] [address] [address] Apurva Garcia EO # 0.4 103/ul Normal 0.0-0.7 [facility] Comment on above: Performed By: #### A MY, CMP, LIPA #### [facility] [address] [place] [address] Dr. Apurva Garcia Eosinophils/100 WBC (Bld) 4.2 % Normal 0.9-7.0 [facility] Comment on above: Performed By: #### A MY, CMP, LIPA #### [facility] [address] [place] [address] Dr. Apurva Garcia Erythrocyte distribution width (RBC) [Ratio] 13.6 % Normal 11.0-15.0 [facility] Comment on above: Performed By: #### A MY, CMP, LIPA #### [facility] [address] [place] [address] Dr. Apurva Garcia Hematocrit (Bld) [Volume fraction] 39.3 % Normal 36.0-48.0 [facility] Comment on above: Performed By: #### A MY, CMP, LIPA #### [facility] [address] [place] [address] Dr. Apurva Garcia Hemoglobin (Bld) [Mass/Vol] 13.1 g/dL Normal 12.0-16.0 [facility] Comment on above: Performed By: #### A MY, CMP, LIPA #### [facility] [address] [place] [address] Dr. Apurva Garcia IG # 0.07 10e3/ul Critically high 0.00-0.03 [facility] Comment on above: Performed By: #### A MY, CMP, LIPA #### [facility] [address] [place] [address] Dr. Apurva Garcia IG % 0.8 % Critically high 0.0-0.5 [facility] Comment on above: Performed By: #### A MY, CMP, LIPA #### [facility] [address] [place] [address] Dr. Apurva Garcia LYMPH # 2.4 103/ul Normal 1.2-3.8 [facility] Comment on above: Performed By: #### A MY, CMP, LIPA #### [facility] [address] [place] [address] Dr. Apurva Garcia Lymphocytes/100 WBC (Bld) 27.2 % Normal 20.5-60.0 [facility] Comment on above: Performed By: #### A MY, CMP, LIPA #### [facility] [address] [place] [address] Dr. Apurva Garcia MANUAL DIFF REQ NO Normal [facility] Comment on above: Performed By: #### A MY, CMP, LIPA #### [facility] [address] [place] [address] Dr. Apurva Garcia MCH (RBC) [Entitic mass] 31.7 pg Normal 26.7-34.0 [facility] Comment on above: Performed By: #### A MY, CMP, LIPA #### [facility] [address] [place] [address] Dr. Apurva Garcia MCHC (RBC) [Mass/Vol] 33.3 g/dL Normal 29.9-35.2 [facility] Comment on above: Performed By: #### A MY, CMP, LIPA #### [facility] [address] [place] [address] Dr. Apurva Garcia MCV (RBC) [Entitic vol] 95.2 fL Normal 81.0-99.0 [facility] Comment on above: Performed By: #### A MY, CMP, LIPA #### [facility] [address] [place] [address] Dr. Apurva Garcia MONO # 0.7 103/ul Normal 0.3-0.8 [facility] Comment on above: Performed By: #### A MY, CMP, LIPA #### [facility] [address] [place] [address] Dr. Apurva Garcia Monocytes/100 WBC (Bld) 7.7 % Normal 1.7-12.0 [facility] Comment on above: Performed By: #### A MY, CMP, LIPA #### [facility] [address] [address] [address] Apurva Garcia NEUT # 5.3 103/ul Normal 1.4-6.5 [facility] Comment on above: Performed By: #### A MY, CMP, LIPA #### [facility] [address] [address] [address] Apurva Garcia Neutrophils/100 WBC (Bld) 59.2 % Normal 43.0-75.0 [facility] Comment on above: Performed By: #### A MY, CMP, LIPA #### [facility] [address] [address] [address] Apurva Garcia Platelet mean volume (Bld) [Entitic vol] 9.4 fL Critically low 9.5-13.5 [facility] Comment on above: Performed By: #### A MY, CMP, LIPA #### [facility] [address] [place] [address] Dr. Apurva Garcia PLT 267 103/ul Normal 150-450 [facility] Comment on above: Performed By: #### A MY, CMP, LIPA #### [facility] [address] [address] [address] Apurva Garcia RBC 4.13 106/ul Critically low 4.20-5.40 [facility] Comment on above: Performed By: #### A MY, CMP, LIPA #### [facility] [address] [place] [address] Dr. Apurva Garcia WBC 9.0 103/ul Normal 4.0-11.0 [facility] Comment on above: Performed By: #### A MY, CMP, LIPA #### [facility] [address] [place] [address] Dr. Apurva Garcia LIPASEon 10-10-2021 Lipase [Catalytic activity/Vol] 36.0 U/L Critically low 73.0-393.0 [facility] Comment on above: Performed By: #### A MY, CMP, LIPA #### [facility] [address] [address] [address] Apurva Garcia NM HEPATOBILIARY SCANon NM HEPATOBILIARY SCAN NUCLEAR MEDICINE HIDA SCAN WITH GALLBLADDER HISTORY: Abdominal Pain status post cholecystectomy. COMPARISON: Ultrasound 10/07/2021. METHOD: Following IV injection of 5.2 mCi of [id number] , anterior imaging of the abdomen was acquired for 60 minutes. FINDINGS: There is satisfactory uptake of radiopharmaceutical by the liver. The bile duct and bowel are seen in the expected period of time and sequence. There is no evidence of biliary leak. IMPRESSION: No evidence of biliary leak. Electronically authenticated by: ELENITA GUERRIER Date: 2021-10-10 11:14 Normal [facility] PROF 14(COMP METB)on 022 Albumin [Mass/Vol] 2.9 g/dL Critically low 3.4-5.0 Th e [facility] Comment on above: Performed By: #### A MY, CMP, LIPA #### [facility] [address] [address] [address] Apurva Garcia Albumin/Globulin [Mass ratio] 1.0 {ratio} Normal [facility] Comment on above: Performed By: #### A MY, CMP, LIPA #### [facility] [address] [address] [address] Apurva Garcia ALP [Catalytic activity/Vol] 72 U/L Normal 46-116 [facility] Comment on above: Performed By: #### A MY, CMP, LIPA #### [facility] [address] [address] [address] Apurva Garcia ALT [Catalytic activity/Vol] 71 U/L Critically high 14-59 [facility] Comment on above: Performed By: #### A MY, CMP, LIPA #### [facility] [address] [address] [address] Apurva Garcia Anion gap [Moles/Vol] 10.4 mmol/L Normal [facility] Comment on above: Performed By: #### A MY, CMP, LIPA #### [facility] [address] [address] [address] Apurva Garcia AST [Catalytic activity/Vol] 39 U/L Critically high 15-37 [facility] Comment on above: Performed By: #### A MY, CMP, LIPA #### [facility] [address] [place] [address] Dr. Apurva Garcia Bilirubin [Mass/Vol] 0.8 mg/dL Normal 0.2-1.0 [facility] Comment on above: Performed By: #### A MY, CMP, LIPA #### [facility] [address] [place] [address] Dr. Apurva Garcia Calcium [Mass/Vol] 8.7 mg/dL Normal 8.5-10.1 [facility] Comment on above: Performed By: #### A MY, CMP, LIPA #### [facility] [address] [place] [address] Dr. Apurva Garcia Chloride [Moles/Vol] 103 mmol/L Normal 98-107 [facility] Comment on above: Performed By: #### A MY, CMP, LIPA #### [facility] [address] [place] [address] Dr. Apurva Garcia CO2 [Moles/Vol] 27.9 mmol/L Normal 21.0-32.0 [facility] Comment on above: Performed By: #### A MY, CMP, LIPA #### [facility] [address] [place] [address] Dr. Apurva Garcia Creatinine [Mass/Vol] 0.69 mg/dL Normal 0.55-1.02 [facility] Comment on above: Performed By: #### A MY, CMP, LIPA #### [facility] [address] [place] [address] Dr. Apurva Garcia EGFR-AF AFGHAN >60 Normal >=[address] [facility] Comment on above: Performed By: #### A MY, CMP, LIPA #### [facility] [address] [place] [address] Dr. Apurva Garcia EGFR-NON AF AFGHAN >60 Normal >=60 [facility] Comment on above: Performed By: #### A MY, CMP, LIPA #### [facility] [address] [place] [address] Dr. Apurva Garcia Globulin (S) [Mass/Vol] 3.0 g/dL Normal [facility] Comment on above: Performed By: #### A MY, CMP, LIPA #### [facility] [address] [address] [address] Apurva Garcia Glucose [Mass/Vol] 102 mg/dL Normal 74-106 [facility] Comment on above: Performed By: #### A MY, CMP, LIPA #### [facility] [address] [place] [address] Dr. Apurva Garcia Potassium [Moles/Vol] 3.3 mmol/L Critically low 3.5-5.1 [facility] Comment on above: Performed By: #### A MY, CMP, LIPA #### [facility] [address] [place] [address] Dr. Apurva Garcia Protein [Mass/Vol] 5.9 g/dL Critically low 6.4-8.2 [facility] Comment on above: Performed By: #### A MY, CMP, LIPA #### [facility] [address] [place] [address] Dr. Apurva Garcia Sodium [Moles/Vol] 138 mmol/L Normal 136-145 [facility] Comment on above: Performed By: #### A MY, CMP, LIPA #### [facility] [address] [place] [address] Dr. Apurva Garcia Urea nitrogen [Mass/Vol] 6.0 mg/dL Critically low 7.0-18.0 [facility] Comment on above: Performed By: #### A MY, CMP, LIPA #### [facility] [address] [place] [address] Dr. Apurva Garcia Urea nitrogen/Creatinine [Mass ratio] 8.7 mg/mg Normal [facility] Comment on above: Performed By: #### A MY, CMP, LIPA #### [facility] [address] [place] [address] Dr. Apurva Garcia AMMONIAon 10-09-2021 Ammonia (P) [Moles/Vol] 10 umol/L Critically low 11-32 [facility] Comment on above: Performed By: #### A MY, CMP, LIPA #### [facility] [address] [place] [address] Dr. Apurva Garcia AMYLASEon 10-09-2021 Amylase [Catalytic activity/Vol] 46 U/L Normal 25-115 [facility] Comment on above: Performed By: #### A MY, CMP, LIPA #### [facility] [address] [place] [address] Dr. Apurva Garcia CBC AUTO DIFFon 10-09-2021 BASO # 0.1 103/ul Normal 0.0-0.1 [facility] Comment on above: Performed By: #### A MY, CMP, LIPA #### [facility] [address] [place] [address] Dr. Apurva Garcia Basophils/100 WBC (Bld) 0.4 % Normal 0.2-2.0 [facility] Comment on above: Performed By: #### A MY, CMP, LIPA #### [facility] [address] [place] [address] Dr. Apurva Garcia EO # 0.0 103/ul Normal 0.0-0.7 [facility] Comment on above: Performed By: #### A MY, CMP, LIPA #### [facility] [address] [place] [address] Dr. Apurva Garcia Eosinophils/100 WBC (Bld) 0.3 % Critically low 0.9-7.0 [facility] Comment on above: Performed By: #### A MY, CMP, LIPA #### [facility] [address] [place] [address] Dr. Apurva Garcia Erythrocyte distribution width (RBC) [Ratio] 13.5 % Normal 11.0-15.0 [facility] Comment on above: Performed By: #### A MY, CMP, LIPA #### [facility] [address] [place] [address] Dr. Apurva Garcia Hematocrit (Bld) [Volume fraction] 43.1 % Normal 36.0-48.0 [facility] Comment on above: Performed By: #### A MY, CMP, LIPA #### [facility] [address] [address] [address] Apurva Garcia Hemoglobin (Bld) [Mass/Vol] 14.4 g/dL Normal 12.0-16.0 [facility] Comment on above: Performed By: #### A MY, CMP, LIPA #### [facility] [address] [address] [address] Apurva Garcia IG # 0.07 10e3/ul Critically high 0.00-0.03 [facility] Comment on above: Performed By: #### A MY, CMP, LIPA #### [facility] [address] [address] [address] Apurva Garcia IG % 0.5 % Normal 0.0-0.5 [facility] Comment on above: Performed By: #### A MY, CMP, LIPA #### [facility] [address] [place] [address] Dr. Apurva Garcia LYMPH # 2.3 103/ul Normal 1.2-3.8 [facility] Comment on above: Performed By: #### A MY, CMP, LIPA #### [facility] [address] [place] [address] Dr. Apurva Garcia Lymphocytes/100 WBC (Bld) 16.9 % Critically low 20.5-60.0 [facility] Comment on above: Performed By: #### A MY, CMP, LIPA #### [facility] [address] [place] [address] Dr. Apurva Garcia MANUAL DIFF REQ NO Normal [facility] Comment on above: Performed By: #### A MY, CMP, LIPA #### [facility] [address] [place] [address] Dr. Apurva Garcia MCH (RBC) [Entitic mass] 32.3 pg Normal 26.7-34.0 [facility] Comment on above: Performed By: #### A MY, CMP, LIPA #### [facility] [address] [place] [address] Dr. Apurva Garcia MCHC (RBC) [Mass/Vol] 33.4 g/dL Normal 29.9-35.2 [facility] Comment on above: Performed By: #### A MY, CMP, LIPA #### [facility] [address] [place] [address] Dr. Apurva Garcia MCV (RBC) [Entitic vol] 96.6 fL Normal 81.0-99.0 [facility] Comment on above: Performed By: #### A MY, CMP, LIPA #### [facility] [address] [place] [address] Dr. Apurva Garcia MONO # 0.8 103/ul Normal 0.3-0.8 [facility] Comment on above: Performed By: #### A MY, CMP, LIPA #### [facility] [address] [place] [address] Dr. Apurva Garcia Monocytes/100 WBC (Bld) 5.8 % Normal 1.7-12.0 [facility] Comment on above: Performed By: #### A MY, CMP, LIPA #### [facility] [address] [place] [address] Dr. Apurva Garcia NEUT # 10.5 103/ul Critically high 1.4-6.[address] [facility] Comment on above: Performed By: #### A MY, CMP, LIPA #### [facility] [address] [place] [address] Dr. Apurva Garcia Neutrophils/100 WBC (Bld) 76.1 % Critically high 43.0-75.0 [facility] Comment on above: Performed By: #### A MY, CMP, LIPA #### [facility] [address] [place] [address] Dr. Apurva Garcia Platelet mean volume (Bld) [Entitic vol] 9.5 fL Normal 9.5-13.5 [facility] Comment on above: Performed By: #### A MY, CMP, LIPA #### [facility] [address] [place] [address] Dr. Apurva Garcia PLT 304 103/ul Normal 150-450 [facility] Comment on above: Performed By: #### A MY, CMP, LIPA #### [facility] [address] [place] [address] Dr. Apurva Garcia RBC 4.46 106/ul Normal 4.20-5.40 [facility] Comment on above: Performed By: #### A IRENA HERNANDEZ, LIPA #### [facility] [address] [place] [address] Dr. Apurva Garcia WBC 13.7 103/ul Critically high 4.0-11.0 [facility] Comment on above: Performed By: #### A IRENA HERNANDEZ, LIPA #### [facility] [address] [place] [address] Dr. Apurva Garcia CULTURE URINEon 10-09-2021 CULTURE URINE Isolate 1 Escherichia coli >100,000 cfu/mL of ORGANISM 1 Escherichia coli ANTIBIOTIC M.I.C RX STATUS Ampicillin >=32 R F Ampicillin/Sulbactam 16 I F Piperacillin/Tazobactam <=4 S F Cefazolin <=4 S F Ceftazidime <=1 S F Ceftriaxone <=1 S F Ertapenem <=0.5 S F Imipenem <=0.25 S F Amikacin <=2 S F Gentamicin >=16 R F Tobramycin 8 I F Ciprofloxacin <=0.25 S F Levofloxacin <=0.12 S F Nitrofurantoin <=16 S F Trimethoprim/Sulfametho xazole >=320 R F Normal [facility] Comment on above: Performed By: #### B MP #### [facility] [address] [place] [address] Dr. Apurva Garcia LIPASEon 10-09-2021 Lipase [Catalytic activity/Vol] 44.0 U/L Critically low 73.0-393.0 [facility] Comment on above: Performed By: #### A IRENA HERNANDEZ, LIPA #### [facility] [address] [place] [address] Dr. Apurva Garcia PROF 14(COMP METB)on 022 Albumin [Mass/Vol] 3.3 g/dL Critically low 3.4-5.0 [facility] Comment on above: Performed By: #### A IRENA HERNANDEZ, LIPA #### [facility] [address] [place] [address] Dr. Apurva Garcia Albumin/Globulin [Mass ratio] 1.0 {ratio} Normal [facility] Comment on above: Performed By: #### A MY, CMP, LIPA #### [facility] [address] [address] [address] Apurva Garcia ALP [Catalytic activity/Vol] 80 U/L Normal 46-116 [facility] Comment on above: Performed By: #### A MY, CMP, LIPA #### [facility] [address] [address] [address] Apurva Garcia ALT [Catalytic activity/Vol] 63 U/L Critically high 14-59 [facility] Comment on above: Performed By: #### A MY, CMP, LIPA #### [facility] [address] [place] [address] Dr. Apurva Garcia Anion gap [Moles/Vol] 10.3 mmol/L Normal [facility] Comment on above: Performed By: #### A MY, CMP, LIPA #### [facility] [address] [place] [address] Dr. Apurva Garcia AST [Catalytic activity/Vol] 43 U/L Critically high 15-37 [facility] Comment on above: Performed By: #### A MY, CMP, LIPA #### [facility] [address] [place] [address] Dr. Apurva Garcia Bilirubin [Mass/Vol] 0.9 mg/dL Normal 0.2-1.0 [facility] Comment on above: Performed By: #### A MY, CMP, LIPA #### [facility] [address] [place] [address] Dr. Apurva Garcia Calcium [Mass/Vol] 8.7 mg/dL Normal 8.5-10.1 [facility] Comment on above: Performed By: #### A MY, CMP, LIPA #### [facility] [address] [place] [address] Dr. Apurva Garcia Chloride [Moles/Vol] 105 mmol/L Normal 98-107 [facility] Comment on above: Performed By: #### A MY, CMP, LIPA #### [facility] [address] [address] [address] Apurva Garcia CO2 [Moles/Vol] 29.3 mmol/L Normal 21.0-32.[address] [facility] Comment on above: Performed By: #### A MY, CMP, LIPA #### [facility] [address] [address] [address] Apurva Garcia Creatinine [Mass/Vol] 0.65 mg/dL Normal 0.55-1.02 [facility] Comment on above: Performed By: #### A MY, CMP, LIPA #### [facility] [address] [address] [address] Apurva Garcia EGFR-AF AFGHAN >60 Normal >=[address] [facility] Comment on above: Performed By: #### A MY, CMP, LIPA #### [facility] [address] [address] [address] Apurva Garcia EGFR-NON AF AFGHAN >60 Normal >=60 [facility] Comment on above: Performed By: #### A MY, CMP, LIPA #### [facility] [address] [address] [address] Apurva Garcia Globulin (S) [Mass/Vol] 3.2 g/dL Normal [facility] Comment on above: Performed By: #### A MY, CMP, LIPA #### [facility] [address] [address] [address] Apurva Garcia Glucose [Mass/Vol] 102 mg/dL Normal 74-106 [facility] Comment on above: Performed By: #### A MY, CMP, LIPA #### [facility] [address] [address] [address] Apurva Garcia Potassium [Moles/Vol] 3.6 mmol/L Normal 3.5-5.1 [facility] Comment on above: Performed By: #### A MY, CMP, LIPA #### [facility] [address] [address] [address] Apurva Garcia Protein [Mass/Vol] 6.5 g/dL Normal 6.4-8.2 [facility] Comment on above: Performed By: #### A MY, CMP, LIPA #### [facility] [address] [address] [address] Apurva Garcia Sodium [Moles/Vol] 141 mmol/L Normal 136-145 [facility] Comment on above: Performed By: #### A MY, CMP, LIPA #### [facility] [address] [place] [address] Dr. Apurva Garcia Urea nitrogen [Mass/Vol] 5.0 mg/dL Critically low 7.0-18.0 [facility] Comment on above: Performed By: #### A MY, CMP, LIPA #### [facility] [address] [place] [address] Dr. Apurva Garcia Urea nitrogen/Creatinine [Mass ratio] 7.7 mg/mg Normal [facility] Comment on above: Performed By: #### A MY, CMP, LIPA #### [facility] [address] [place] [address] Dr. Apurva Garcia AMMONIAon 10-08-2021 Ammonia (P) [Moles/Vol] 18 umol/L Normal 11-32 [facility] Comment on above: Performed By: #### A MY, CMP, LIPA #### [facility] [address] [place] [address] Dr. Apurva Garcia AMYLASEon 10-08-2021 Amylase [Catalytic activity/Vol] 48 U/L Normal 25-115 [facility] Comment on above: Performed By: #### A MY, CMP, LIPA #### [facility] [address] [place] [address] Dr. Apurva Garcia CBC AUTO DIFFon 10-08-2021 BASO # 0.1 103/ul Normal 0.0-0.1 [facility] Comment on above: Performed By: #### A MY, CMP, LIPA #### [facility] [address] [place] [address] Dr. Apurva Garcia Basophils/100 WBC (Bld) 0.6 % Normal 0.2-2.0 [facility] Comment on above: Performed By: #### A MY, CMP, LIPA #### [facility] [address] [place] [address] Dr. Apruva Garcia EO # 0.1 103/ul Normal 0.0-0.7 [facility] Comment on above: Performed By: #### A MY, CMP, LIPA #### [facility] [address] [place] [address] Dr. Apurva Garcia Eosinophils/100 WBC (Bld) 0.9 % Normal 0.9-7.0 [facility] Comment on above: Performed By: #### A MY, CMP, LIPA #### [facility] [address] [place] [address] Dr. Apurva Garcia Erythrocyte distribution width (RBC) [Ratio] 13.2 % Normal 11.0-15.0 [facility] Comment on above: Performed By: #### A MY, CMP, LIPA #### [facility] [address] [place] [address] Dr. Apurva Garcia Hematocrit (Bld) [Volume fraction] 44.8 % Normal 36.0-48.0 [facility] Comment on above: Performed By: #### A MY, CMP, LIPA #### [facility] [address] [place] [address] Dr. Apurva Garcia Hemoglobin (Bld) [Mass/Vol] 15.1 g/dL Normal 12.0-16.0 [facility] Comment on above: Performed By: #### A MY, CMP, LIPA #### [facility] [address] [place] [address] Dr. Apurva Garcia IG # 0.08 10e3/ul Critically high 0.00-0.03 [facility] Comment on above: Performed By: #### A MY, CMP, LIPA #### [facility] [address] [place] [address] Dr. Apurva Garcia IG % 0.9 % Critically high 0.0-0.5 [facility] Comment on above: Performed By: #### A MY, CMP, LIPA #### [facility] [address] [place] [address] Dr. Apurva Garcia LYMPH # 2.5 103/ul Normal 1.2-3.8 [facility] Comment on above: Performed By: #### A MY, CMP, LIPA #### [facility] [address] [place] [address] Dr. Apurva Garcia Lymphocytes/100 WBC (Bld) 26.9 % Normal 20.5-60.0 [facility] Comment on above: Performed By: #### A MY, CMP, LIPA #### [facility] [address] [place] [address] Dr. Apurva Garcia MANUAL DIFF REQ NO Normal [facility] Comment on above: Performed By: #### A MY, CMP, LIPA #### [facility] [address] [place] [address] Dr. Apurva Garcia MCH (RBC) [Entitic mass] 31.9 pg Normal 26.7-34.0 [facility] Comment on above: Performed By: #### A MY, CMP, LIPA #### [facility] [address] [place] [address] Dr. Apurva Garcia MCHC (RBC) [Mass/Vol] 33.7 g/dL Normal 29.9-35.2 [facility] Comment on above: Performed By: #### A MY, CMP, LIPA #### [facility] [address] [place] [address] Dr. Apurva Garcia MCV (RBC) [Entitic vol] 94.7 fL Normal 81.0-99.0 [facility] Comment on above: Performed By: #### A MY, CMP, LIPA #### [facility] [address] [place] [address] Dr. Apurva Garcia MONO # 0.6 103/ul Normal 0.3-0.8 [facility] Comment on above: Performed By: #### A MY, CMP, LIPA #### [facility] [address] [place] [address] Dr. Apurva Garcia Monocytes/100 WBC (Bld) 6.5 % Normal 1.7-12.0 [facility] Comment on above: Performed By: #### A MY, CMP, LIPA #### [facility] [address] [address] [address] Apurva Garcia NEUT # 6.0 103/ul Normal 1.4-6.5 [facility] Comment on above: Performed By: #### A MY, CMP, LIPA #### [facility] [address] [address] [address] Apurva Garcia Neutrophils/100 WBC (Bld) 64.2 % Normal 43.0-75.0 [facility] Comment on above: Performed By: #### A MY, CMP, LIPA #### [facility] [address] [address] [address] Apurva Garcia Platelet mean volume (Bld) [Entitic vol] 9.6 fL Normal 9.5-13.5 [facility] Comment on above: Performed By: #### A MY, CMP, LIPA #### [facility] [address] [place] [address] Dr. Apurva Garcia PLT 345 103/ul Normal 150-450 [facility] Comment on above: Performed By: #### A MY, CMP, LIPA #### [facility] [address] [address] [address] Apurva Garcia RBC 4.73 106/ul Normal 4.20-5.40 [facility] Comment on above: Performed By: #### A MY, CMP, LIPA #### [facility] [address] [place] [address] Dr. Apurva Garcia WBC 9.4 103/ul Normal 4.0-11.0 [facility] Comment on above: Performed By: #### A MY, CMP, LIPA #### [facility] [address] [place] [address] Dr. Apurva Garcia H PYLORI TISSUEon 10-08-2021 H PYL TISSUE, UREASE Negative Normal NEGATIVE [facility] Comment on above: Performed By: #### A MY, CMP, LIPA #### [facility] [address] [place] [address] Dr. Apurva Garcia LIPASEon 10-08-2021 Lipase [Catalytic activity/Vol] 50.0 U/L Critically low 73.0-393.0 [facility] Comment on above: Performed By: #### A MY, CMP, LIPA #### [facility] [address] [address] [address] Apurva Garcia PROF 14(COMP METB)on 022 Albumin [Mass/Vol] 3.3 g/dL Critically low 3.4-5.0 [facility] Comment on above: Performed By: #### A MY, CMP, LIPA #### [facility] [address] [place] [address] Dr. Apurva Garcia Albumin/Globulin [Mass ratio] 0.9 {ratio} Normal [facility] Comment on above: Performed By: #### A MY, CMP, LIPA #### [facility] [address] [place] [address] Dr. Apurva Garcia ALP [Catalytic activity/Vol] 86 U/L Normal 46-116 [facility] Comment on above: Performed By: #### A MY, CMP, LIPA #### [facility] [address] [place] [address] Dr. Apurva Garcia ALT [Catalytic activity/Vol] 39 U/L Normal 14-59 [facility] Comment on above: Performed By: #### A MY, CMP, LIPA #### [facility] [address] [place] [address] Dr. Apurva Garcia Anion gap [Moles/Vol] 10.1 mmol/L Normal [facility] Comment on above: Performed By: #### A MY, CMP, LIPA #### [facility] [address] [place] [address] Dr. Apurva Garcia AST [Catalytic activity/Vol] 17 U/L Normal 15-37 [facility] Comment on above: Performed By: #### A MY, CMP, LIPA #### [facility] [address] [place] [address] Dr. Apurva Garcia Bilirubin [Mass/Vol] 0.9 mg/dL Normal 0.2-1.0 [facility] Comment on above: Performed By: #### A MY, CMP, LIPA #### [facility] [address] [address] [address] Apurva Garcia Calcium [Mass/Vol] 8.7 mg/dL Normal 8.5-10.1 [facility] Comment on above: Performed By: #### A MY, CMP, LIPA #### [facility] [address] [address] [address] Apurva Garcia Chloride [Moles/Vol] 104 mmol/L Normal 98-107 [facility] Comment on above: Performed By: #### A MY, CMP, LIPA #### [facility] [address] [address] [address] Apurva Garcia CO2 [Moles/Vol] 28.7 mmol/L Normal 21.0-32.[address] [facility] Comment on above: Performed By: #### A MY, CMP, LIPA #### [facility] [address] [address] [address] Apurva Garcia Creatinine [Mass/Vol] 0.72 mg/dL Normal 0.55-1.02 [facility] Comment on above: Performed By: #### A MY, CMP, LIPA #### [facility] [address] [address] [address] Apurva Garcia EGFR-AF AFGHAN >60 Normal >=60 [facility] Comment on above: Performed By: #### A MY, CMP, LIPA #### [facility] [address] [address] [address] Apurva Garcia EGFR-NON AF AFGHAN >60 Normal >=60 [facility] Comment on above: Performed By: #### A MY, CMP, LIPA #### [facility] [address] [address] [address] Apurva Garcia Globulin (S) [Mass/Vol] 3.5 g/dL Normal [facility] Comment on above: Performed By: #### A MY, CMP, LIPA #### [facility] [address] [address] [address] Apurva Garcia Glucose [Mass/Vol] 106 mg/dL Normal 74-106 [facility] Comment on above: Performed By: #### A MY, CMP, LIPA #### [facility] [address] [place] [address] Dr. Apurva Garcia Potassium [Moles/Vol] 3.8 mmol/L Normal 3.5-5.1 [facility] Comment on above: Performed By: #### A MY, CMP, LIPA #### [facility] [address] [place] [address] Dr. Apurva Garcia Protein [Mass/Vol] 6.8 g/dL Normal 6.4-8.2 [facility] Comment on above: Performed By: #### A MY, CMP, LIPA #### [facility] [address] [place] [address] Dr. Apurva Garcia Sodium [Moles/Vol] 139 mmol/L Normal 136-145 [facility] Comment on above: Performed By: #### A MY, CMP, LIPA #### [facility] [address] [place] [address] Dr. Apurva Garcia Urea nitrogen [Mass/Vol] 7.0 mg/dL Normal 7.0-18.0 [facility] Comment on above: Performed By: #### A MY, CMP, LIPA #### [facility] [address] [place] [address] Dr. Apurva Garcia Urea nitrogen/Creatinine [Mass ratio] 9.7 mg/mg Normal [facility] Comment on above: Performed By: #### A MY, CMP, LIPA #### [facility] [address] [place] [address] Dr. Apurva Garcia AMYLASEon 10-07-2021 Amylase [Catalytic activity/Vol] 74 U/L Normal 25-115 [facility] Comment on above: Performed By: #### A MY, CMP, LIPA #### [facility] [address] [place] [address] Dr. Apurva Garcia CBC AUTO DIFFon 10-07-2021 BASO # 0.1 103/ul Normal 0.0-0.1 [facility] Comment on above: Performed By: #### A MY, CMP, LIPA #### [facility] [address] [address] [address] Apurva Garcia Basophils/100 WBC (Bld) 0.5 % Normal 0.2-2.0 [facility] Comment on above: Performed By: #### A MY, CMP, LIPA #### [facility] [address] [address] [address] Apurva Garcia EO # 0.0 103/ul Normal 0.0-0.7 [facility] Comment on above: Performed By: #### A MY, CMP, LIPA #### [facility] [address] [place] [address] Dr. Apurva Garcia Eosinophils/100 WBC (Bld) 0.3 % Critically low 0.9-7.0 [facility] Comment on above: Performed By: #### A MY, CMP, LIPA #### [facility] [address] [place] [address] Dr. Apurva Garcia Erythrocyte distribution width (RBC) [Ratio] 13.0 % Normal 11.0-15.0 [facility] Comment on above: Performed By: #### A MY, CMP, LIPA #### [facility] [address] [place] [address] Dr. Apurva Garcia Hematocrit (Bld) [Volume fraction] 48.7 % Critically high 36.0-48.0 [facility] Comment on above: Performed By: #### A MY, CMP, LIPA #### [facility] [address] [place] [address] Dr. Apurva Garcia Hemoglobin (Bld) [Mass/Vol] 17.1 g/dL Critically high 12.0-16.0 [facility] Comment on above: Performed By: #### A MY, CMP, LIPA #### [facility] [address] [place] [address] Dr. Apurva Garcia IG # 0.08 10e3/ul Critically high 0.00-0.03 [facility] Comment on above: Performed By: #### A MY, CMP, LIPA #### [facility] [address] [place] [address] Dr. Apurva Garcia IG % 0.7 % Critically high 0.0-0.5 [facility] Comment on above: Performed By: #### A MY, CMP, LIPA #### [facility] [address] [place] [address] Dr. Apurva Garcia LYMPH # 2.3 103/ul Normal 1.2-3.8 [facility] Comment on above: Performed By: #### A MY, CMP, LIPA #### [facility] [address] [place] [address] Dr. Apurva Garcia Lymphocytes/100 WBC (Bld) 19.2 % Critically low 20.5-60.0 [facility] Comment on above: Performed By: #### A MY, CMP, LIPA #### [facility] [address] [place] [address] Dr. Apurva Garcia MANUAL DIFF REQ NO Normal [facility] Comment on above: Performed By: #### A MY, CMP, LIPA #### [facility] [address] [place] [address] Dr. Apurva Garcia MCH (RBC) [Entitic mass] 31.9 pg Normal 26.7-34.0 [facility] Comment on above: Performed By: #### A MY, CMP, LIPA #### [facility] [address] [place] [address] Dr. Apurva Garcia MCHC (RBC) [Mass/Vol] 35.1 g/dL Normal 29.9-35.2 [facility] Comment on above: Performed By: #### A MY, CMP, LIPA #### [facility] [address] [place] [address] Dr. Apurva Garcia MCV (RBC) [Entitic vol] 90.9 fL Normal 81.0-99.0 [facility] Comment on above: Performed By: #### A MY, CMP, LIPA #### [facility] [address] [place] [address] Dr. Apurva Garcia MONO # 0.9 103/ul Critically high 0.3-0.8 [facility] Comment on above: Performed By: #### A MY, CMP, LIPA #### [facility] [address] [address] [address] Apurva Garcia Monocytes/100 WBC (Bld) 7.1 % Normal 1.7-12.0 [facility] Comment on above: Performed By: #### A MY, CMP, LIPA #### [facility] [address] [address] [address] Apurva Garcia NEUT # 8.7 103/ul Critically high 1.4-6.5 [facility] Comment on above: Performed By: #### A MY, CMP, LIPA #### [facility] [address] [place] [address] Dr. Apurva Garcia Neutrophils/100 WBC (Bld) 72.2 % Normal 43.0-75.0 [facility] Comment on above: Performed By: #### A MY, CMP, LIPA #### [facility] [address] [place] [address] Dr. Apurva Garcia Platelet mean volume (Bld) [Entitic vol] 9.6 fL Normal 9.5-13.5 [facility] Comment on above: Performed By: #### A MY, CMP, LIPA #### [facility] [address] [place] [address] Dr. Apurva Garcia PLT 446 103/ul Normal 150-450 [facility] Comment on above: Performed By: #### A MY, CMP, LIPA #### [facility] [address] [place] [address] Dr. Apurva Garcia RBC 5.36 106/ul Normal 4.20-5.40 [facility] Comment on above: Performed By: #### A MY, CMP, LIPA #### [facility] [address] [address] [address] Apurva Garcia WBC 12.0 103/ul Critically high 4.0-11.0 [facility] Comment on above: Performed By: #### A MY, CMP, LIPA #### [facility] [address] [place] [address] Dr. Apurva Garcia Covid-19 PCR ([facility])on SARS-CoV-2 (COVID-19) RNA LETTY+probe Ql (Unsp spec) Not detected Normal NOT DETECTED [facility] Comment on above: Result Comment: When diagnostic testing is negative, the possibility of a false negative should be considered in the context of a patient's recent exposures and the presence of clinical signs and symptoms consistent with SARS-CoV-2. This test is not yet approved or cleared by the [place] FDA. When there are no FDA-approved or cleared tests available, and other criteria are met, FDA can make tests available under an emergency access mechanism called an Emergency Use Authorization (EUA). The EUA for this test is supported by the [place] of Health and Human Service's declaration that circumstances exist to justify the emergency use of in vitro diagnostics for the detection and/or diagnosis of the virus that causes COVID-19. This EUA will remain in effect for the duration of the COVID-19 declaration justifying emergency of IVDs, unless it is terminated or revoked by the FDA (after which the test may no longer be used). Performed By: #### A MY, CMP, LIPA #### [facility] [address] [place] [address] Dr. Apurva Garcia ER URINE PROFILEon 2 Bilirubin Ql (U) Negative Normal NEGATIVE [facility] Comment on above: Performed By: #### A MY CMP, LIPA #### [facility] [address] [place] [address] Dr. Apurva Garcia Clarity (U) CLEAR Normal CLEAR [facility] Comment on above: Performed By: #### A MY CMP, LIPA #### [facility] [address] [place] [address] Dr. Apurva Garcia Color (U) LT. YELLOW Normal YELLOW [facility] Comment on above: Performed By: #### A MY CMP, LIPA #### [facility] [address] [place] [address] Dr. Apurva Garcia ERUAHD A micrscopic examination will be performed if indicated. Normal [facility] Comment on above: Performed By: #### A MY, CMP, LIPA #### [facility] [address] [place] [address] Dr. Apurva Garcia Glucose Ql (U) Negative Normal NEGATIVE [facility] Comment on above: Performed By: #### A MY, CMP, LIPA #### [facility] [address] [address] [address] Apurva Garcia Hemoglobin Ql (U) Negative Normal NEGATIVE [facility] Comment on above: Performed By: #### A MY, CMP, LIPA #### [facility] [address] [address] [address] Apurva Garcia Ketones Ql (U) 15 mg/dl Abnormal NEGATIVE [facility] Comment on above: Performed By: #### A MY, CMP, LIPA #### [facility] [address] [place] [address] Dr. Apurva Garcia LEUKOCYTES LARGE Abnormal NEGATIVE [facility] Comment on above: Performed By: #### A MY, CMP, LIPA #### [facility] [address] [address] [address] Apurva Garcia Nitrite Ql (U) Positive Abnormal NEGATIVE [facility] Comment on above: Performed By: #### A MY, CMP, LIPA #### [facility] [address] [place] [address] Dr. Apurva Garcia pH (U) 6.0 [pH] Normal 5-9 [facility] Comment on above: Performed By: #### A MY, CMP, LIPA #### [facility] [address] [address] [address] Apurva Garcia SPEC GRAVITY <=1.005 Abnormal 1.005-<=1.025 [facility] Comment on above: Performed By: #### A MY, CMP, LIPA #### [facility] [address] [address] [address] Apurva Garcia UA PROTEIN Negative Normal NEGATIVE/ TRACE [facility] Comment on above: Performed By: #### A MY, CMP, LIPA #### [facility] [address] [place] [address] Dr. Apurva Garcia UR MICRO IND INDICATED Normal [facility] Comment on above: Performed By: #### A MY, CMP, LIPA #### [facility] [address] [address] [address] Apurva Garcia Urobilinogen Qn (U) 0.2 {Haylee'U}/dL Normal 0.2 - 1. 0 [facility] Comment on above: Performed By: #### A MY, CMP, LIPA #### [facility] [address] [address] [address] Apurva Garcia LACTATE/LACTIC ACIDon 2021 Lactate [Moles/Vol] 0.9 mmol/L Normal 0.4-1.9 [facility] Comment on above: Performed By: #### A MY, CMP, LIPA #### [facility] [address] [place] [address] Dr. Apurva Garcia Lactate [Moles/Vol] 1.8 mmol/L Normal 0.4-1.9 [facility] Comment on above: Performed By: #### L ACT #### [facility] [address] [place] [address] Dr. Apurva Garcia LIPASEon 10-07-2021 Lipase [Catalytic activity/Vol] 63.0 U/L Critically low 73.0-393.0 [facility] Comment on above: Performed By: #### A MY, CMP, LIPA #### [facility] [address] [place] [address] Dr. Apurva Garcia PROF 14(COMP METB)on 022 Albumin [Mass/Vol] 3.8 g/dL Normal 3.4-5.0 [facility] Comment on above: Performed By: #### L ACT #### [facility] [address] [place] [address] Dr. Apurva Garcia Albumin/Globulin [Mass ratio] 0.9 {ratio} Normal [facility] Comment on above: Performed By: #### L ACT #### [facility] [address] [place] [address] Dr. Apurva Garcia ALP [Catalytic activity/Vol] 96 U/L Normal 46-116 [facility] Comment on above: Performed By: #### L ACT #### [facility] [address] [address] [address] Apurva Garcia ALT [Catalytic activity/Vol] 47 U/L Normal 14-59 [facility] Comment on above: Performed By: #### L ACT #### [facility] [address] [place] [address] Dr. Apurva Garcia Anion gap [Moles/Vol] 12.9 mmol/L Normal [facility] Comment on above: Performed By: #### L ACT #### [facility] [address] [address] [address] Apurva Garcia AST [Catalytic activity/Vol] 26 U/L Normal 15-37 [facility] Comment on above: Performed By: #### L ACT #### [facility] [address] [place] [address] Dr. Apurva Garcia Bilirubin [Mass/Vol] 0.9 mg/dL Normal 0.2-1.0 [facility] Comment on above: Performed By: #### L ACT #### [facility] [address] [place] [address] Dr. Apurva Garcia Calcium [Mass/Vol] 9.6 mg/dL Normal 8.5-10.1 [facility] Comment on above: Performed By: #### L ACT #### [facility] [address] [place] [address] Dr. Apurva Garcia Chloride [Moles/Vol] 92 mmol/L Critically low 98-107 [facility] Comment on above: Performed By: #### L ACT #### [facility] [address] [address] [address] Apurva Garcia CO2 [Moles/Vol] 31.0 mmol/L Normal 21.0-32.[address] [facility] Comment on above: Performed By: #### L ACT #### [facility] [address] [place] [address] Dr. Apurva Garcia Creatinine [Mass/Vol] 0.83 mg/dL Normal 0.55-1.02 [facility] Comment on above: Performed By: #### L ACT #### [facility] [address] [place] [address] Dr. Apurva Garcia EGFR-AF AFGHAN >60 Normal >=60 [facility] Comment on above: Performed By: #### L ACT #### [facility] [address] [address] [address] Apurva Garcia EGFR-NON AF AFGHAN >60 Normal >=60 [facility] Comment on above: Performed By: #### L ACT #### [facility] [address] [address] [address] Apurva Garcia Globulin (S) [Mass/Vol] 4.1 g/dL Normal [facility] Comment on above: Performed By: #### L ACT #### [facility] [address] [address] [address] Apurva Garcia Glucose [Mass/Vol] 126 mg/dL Critically high 74-106 [facility] Comment on above: Performed By: #### L ACT #### [facility] [address] [address] [address] Apurva Garcia Potassium [Moles/Vol] 2.9 mmol/L Critically low 3.5-5.1 [facility] Comment on above: Performed By: #### L ACT #### [facility] [address] [place] [address] Dr. Apurva Garcia Protein [Mass/Vol] 7.9 g/dL Normal 6.4-8.2 [facility] Comment on above: Performed By: #### L ACT #### [facility] [address] [address] [address] Apurva Garcia Sodium [Moles/Vol] 133 mmol/L Critically low 136-145 [facility] Comment on above: Performed By: #### L ACT #### [facility] [address] [address] [address] Apurva Garcia Urea nitrogen [Mass/Vol] 10.0 mg/dL Normal 7.0-18.0 [facility] Comment on above: Performed By: #### L ACT #### [facility] [address] [address] [address] Apurva Garcia Urea nitrogen/Creatinine [Mass ratio] 12.0 mg/mg Normal [facility] Comment on above: Performed By: #### L ACT #### [facility] [address] [place] [address] Dr. Apurva Garcia URINE MICROSCOPIC ONLYon BACTERIA LARGE Abnormal NONE SEEN [facility] Comment on above: Performed By: #### A MY, CMP, LIPA #### [facility] [address] [place] [address] Dr. Apurva Garcia Bacteria identified Cx Nom (U) INDICATED Normal [facility] Comment on above: Performed By: #### A MY, CMP, LIPA #### [facility] [address] [place] [address] Dr. Apurva Garcia CAST NONE SEEN Normal NONE SEEN [facility] Comment on above: Performed By: #### A MY, CMP, LIPA #### [facility] [address] [place] [address] Dr. Apurva Garcia Crystals LM Nom (Urine sed) NONE SEEN Normal NONE SEEN [facility] Comment on above: Performed By: #### A MY, CMP, LIPA #### [facility] [address] [place] [address] Dr. Apurva Garcia Epithelial cells LM Ql (Urine sed) MODERATE Abnormal NONE SEEN /RARE [facility] Comment on above: Performed By: #### A MY, CMP, LIPA #### [facility] [address] [place] [address] Dr. Apurva Garcia MUCOUS NONE SEEN Normal NONE SEEN [facility] Comment on above: Performed By: #### A MY, CMP, LIPA #### [facility] [address] [place] [address] Dr. Apurva Garcia RBC NONE SEEN Abnormal 0-2 [facility] Comment on above: Performed By: #### A MY, CMP, LIPA #### [facility] [address] [place] [address] Dr. Apurva Garcia TRICH SEEN Abnormal NONE SEEN [facility] Comment on above: Performed By: #### A MY, CMP, LIPA #### [facility] [address] [place] [address] Dr. Apurva Garcia WBC 50-75 Abnormal NONE SEEN [facility] Comment on above: Performed By: #### A MY, CMP, LIPA #### [facility] [address] [place] [address] Dr. Apurva Garcia US SINGLE QUAD RT UPPERon US SINGLE QUAD RT UPPER EXAMINATION: US SINGLE QUAD RT UPPER HISTORY: Gallstone COMPARISON: 09/29/2021 FINDINGS: The visualized pancreas is normal The liver is normal in size, contour and echotexture with no solid mass. Hepatopedal flow in the main portal vein The gallbladder is normal in size. The wall measures 2 mm, normal. Echogenic material within the gallbladder lumen, cholelithiasis and sludge. The common bile duct measures 5.5 mm, mildly dilated. Positive sonographic Yanez sign. The right kidney is normal in appearance measuring 10.4 x 5.5 x 5.5 cm per the cortex measures 1.7 cm IMPRESSION: Cholelithiasis and gallbladder sludge without ultrasound evidence of acute cholecystitis Mildly dilated common bile duct with no choledocholithiasis observed Electronically authenticated by: CARL JENKINS Date: 2021-10-07 11:32 Normal [facility] Physician Referralon 022 Physician Referral [id number] D:127 Normal [facility] CBC AUTO DIFFon 10-03-2021 BASO # 0.1 103/ul Normal 0.0-0.1 [facility] Comment on above: Performed By: #### A MY, CMP, LIPA #### [facility] [address] [place] [address] Dr. Apurva Garcia Basophils/100 WBC (Bld) 0.6 % Normal 0.2-2.0 [facility] Comment on above: Performed By: #### A MY, CMP, LIPA #### [facility] [address] [place] [address] Dr. Apurva Garcia EO # 0.1 103/ul Normal 0.0-0.7 [facility] Comment on above: Performed By: #### A MY, CMP, LIPA #### [facility] [address] [place] [address] Dr. Apurva Garcia Eosinophils/100 WBC (Bld) 0.8 % Critically low 0.9-7.0 [facility] Comment on above: Performed By: #### A MY, CMP, LIPA #### [facility] [address] [address] [address] Apurva Garcia Erythrocyte distribution width (RBC) [Ratio] 13.2 % Normal 11.0-15.0 [facility] Comment on above: Performed By: #### A MY, CMP, LIPA #### [facility] [address] [address] [address] Apurva Garcia Hematocrit (Bld) [Volume fraction] 42.7 % Normal 36.0-48.0 [facility] Comment on above: Performed By: #### A MY, CMP, LIPA #### [facility] [address] [place] [address] Dr. Apurva Garcia Hemoglobin (Bld) [Mass/Vol] 14.2 g/dL Normal 12.0-16.0 [facility] Comment on above: Performed By: #### A MY, CMP, LIPA #### [facility] [address] [address] [address] Apurva Garcia IG # 0.06 10e3/ul Critically high 0.00-0.03 [facility] Comment on above: Performed By: #### A MY, CMP, LIPA #### [facility] [address] [address] [address] Apurva Garcia IG % 0.6 % Critically high 0.0-0.5 [facility] Comment on above: Performed By: #### A MY, CMP, LIPA #### [facility] [address] [place] [address] Dr. Apurva Garcia LYMPH # 1.5 103/ul Normal 1.2-3.8 [facility] Comment on above: Performed By: #### A MY, CMP, LIPA #### [facility] [address] [address] [address] Apurva Garcia Lymphocytes/100 WBC (Bld) 15.1 % Critically low 20.5-60.0 [facility] Comment on above: Performed By: #### A MY, CMP, LIPA #### [facility] [address] [address] [address] Apurva Garcia MANUAL DIFF REQ NO Normal [facility] Comment on above: Performed By: #### A MY, CMP, LIPA #### [facility] [address] [place] [address] Dr. Apurva Garcia MCH (RBC) [Entitic mass] 32.0 pg Normal 26.7-34.0 [facility] Comment on above: Performed By: #### A MY, CMP, LIPA #### [facility] [address] [place] [address] Dr. Apurva Garcia MCHC (RBC) [Mass/Vol] 33.3 g/dL Normal 29.9-35.2 [facility] Comment on above: Performed By: #### A MY, CMP, LIPA #### [facility] [address] [place] [address] Dr. Apurva Garcia MCV (RBC) [Entitic vol] 96.2 fL Normal 81.0-99.0 [facility] Comment on above: Performed By: #### A MY, CMP, LIPA #### [facility] [address] [place] [address] Dr. Apurva Garcia MONO # 0.3 103/ul Normal 0.3-0.8 [facility] Comment on above: Performed By: #### A MY, CMP, LIPA #### [facility] [address] [place] [address] Dr. Apurva Garcia Monocytes/100 WBC (Bld) 3.1 % Normal 1.7-12.0 [facility] Comment on above: Performed By: #### A MY, CMP, LIPA #### [facility] [address] [place] [address] Dr. Apurva Garcia NEUT # 8.0 103/ul Critically high 1.4-6.5 [facility] Comment on above: Performed By: #### A MY, CMP, LIPA #### [facility] [address] [place] [address] Dr. Apurva Garcia Neutrophils/100 WBC (Bld) 79.8 % Critically high 43.0-75.0 [facility] Comment on above: Performed By: #### A MY, CMP, LIPA #### [facility] [address] [place] [address] Dr. Apurva Garcia Platelet mean volume (Bld) [Entitic vol] 9.6 fL Normal 9.5-13.5 [facility] Comment on above: Performed By: #### A MY, CMP, LIPA #### [facility] [address] [place] [address] Dr. Apurva Garcia PLT 301 103/ul Normal 150-450 [facility] Comment on above: Performed By: #### A MY, CMP, LIPA #### [facility] [address] [place] [address] Dr. Apurva Garcia RBC 4.44 106/ul Normal 4.20-5.40 [facility] Comment on above: Performed By: #### A MY, CMP, LIPA #### [facility] [address] [place] [address] Dr. Apurva Garcia WBC 10.1 103/ul Normal 4.0-11.0 [facility] Comment on above: Performed By: #### A MY, CMP, LIPA #### [facility] [address] [place] [address] Dr. Apurva Garcia LIPASEon 10-03-2021 Lipase [Catalytic activity/Vol] 53.0 U/L Critically low 73.0-393.0 [facility] Comment on above: Performed By: #### B MP #### [facility] [address] [place] [address] Dr. Apurva Garcia PROF 14(COMP METB)on 022 Albumin [Mass/Vol] 3.6 g/dL Normal 3.4-5.0 [facility] Comment on above: Performed By: #### B MP #### [facility] [address] [place] [address] Dr. Apurva Garcia Albumin/Globulin [Mass ratio] 0.9 {ratio} Normal [facility] Comment on above: Performed By: #### B MP #### [facility] [address] [address] [address] Apurva Garcia ALP [Catalytic activity/Vol] 103 U/L Normal 46-116 [facility] Comment on above: Performed By: #### B MP #### [facility] [address] [address] [address] Apurva Garcia ALT [Catalytic activity/Vol] 46 U/L Normal 14-59 [facility] Comment on above: Performed By: #### B MP #### [facility] [address] [place] [address] Dr. Apurva Garcia Anion gap [Moles/Vol] 9.3 mmol/L Normal [facility] Comment on above: Performed By: #### B MP #### [facility] [address] [place] [address] Dr. Apurva Garcia AST [Catalytic activity/Vol] 27 U/L Normal 15-37 [facility] Comment on above: Performed By: #### B MP #### [facility] [address] [place] [address] Dr. Apurva Garcia Bilirubin [Mass/Vol] 0.5 mg/dL Normal 0.2-1.0 [facility] Comment on above: Performed By: #### B MP #### [facility] [address] [place] [address] Dr. Apurva Garcia Calcium [Mass/Vol] 9.3 mg/dL Normal 8.5-10.1 [facility] Comment on above: Performed By: #### B MP #### [facility] [address] [place] [address] Dr. Apurva Garcia Chloride [Moles/Vol] 100 mmol/L Normal 98-107 [facility] Comment on above: Performed By: #### B MP #### [facility] [address] [place] [address] Dr. Apurva Garcia CO2 [Moles/Vol] 31.2 mmol/L Normal 21.0-32.[address] [facility] Comment on above: Performed By: #### B MP #### [facility] [address] [address] [address] Apurva Garcia Creatinine [Mass/Vol] 0.69 mg/dL Normal 0.55-1.02 [facility] Comment on above: Performed By: #### B MP #### [facility] [address] [address] [address] Apurva Garcia EGFR-AF AFGHAN >60 Normal >=60 [facility] Comment on above: Performed By: #### B MP #### [facility] [address] [address] [address] Apurva Garcia EGFR-NON AF AFGHAN >60 Normal >=60 [facility] Comment on above: Performed By: #### B MP #### [facility] [address] [place] [address] Dr. Apurva Garcia Globulin (S) [Mass/Vol] 3.8 g/dL Normal [facility] Comment on above: Performed By: #### B MP #### [facility] [address] [place] [address] Dr. Apurva Garcia Glucose [Mass/Vol] 142 mg/dL Critically high 74-106 [facility] Comment on above: Performed By: #### B MP #### [facility] [address] [place] [address] Dr. Apurva Garcia Potassium [Moles/Vol] 3.5 mmol/L Normal 3.5-5.1 [facility] Comment on above: Performed By: #### B MP #### [facility] [address] [address] [address] Apurva Garcia Protein [Mass/Vol] 7.4 g/dL Normal 6.4-8.2 [facility] Comment on above: Performed By: #### B MP #### [facility] [address] [place] [address] Dr. Apurva Garcia Sodium [Moles/Vol] 137 mmol/L Normal 136-145 [facility] Comment on above: Performed By: #### B MP #### [facility] [address] [place] [address] Dr. Apurva Garcia Urea nitrogen [Mass/Vol] 11.0 mg/dL Normal 7.0-18.0 [facility] Comment on above: Performed By: #### B MP #### [facility] [address] [place] [address] Dr. Apurva Garcia Urea nitrogen/Creatinine [Mass ratio] 15.9 mg/mg Normal [facility] Comment on above: Performed By: #### B MP #### [facility] [address] [place] [address] Dr. Apurva Garcia CBC AUTO DIFFon 09-29-2021 BASO # 0.1 103/ul Normal 0.0-0.1 [facility] Comment on above: Performed By: #### B MP #### [facility] [address] [place] [address] Dr. Apurva Garcia Basophils/100 WBC (Bld) 0.5 % Normal 0.2-2.0 [facility] Comment on above: Performed By: #### B MP #### [facility] [address] [place] [address] Dr. Apurva Garcia EO # 0.0 103/ul Normal 0.0-0.7 [facility] Comment on above: Performed By: #### B MP #### [facility] [address] [place] [address] Dr. Apurva Garcia Eosinophils/100 WBC (Bld) 0.1 % Critically low 0.9-7.0 [facility] Comment on above: Performed By: #### B MP #### [facility] [address] [place] [address] Dr. Apurva Garcia Erythrocyte distribution width (RBC) [Ratio] 13.6 % Normal 11.0-15.0 [facility] Comment on above: Performed By: #### B MP #### [facility] [address] [place] [address] Dr. Apurva Garcia Hematocrit (Bld) [Volume fraction] 46.7 % Normal 36.0-48.0 [facility] Comment on above: Performed By: #### B MP #### [facility] [address] [place] [address] Dr. Apurva Garcia Hemoglobin (Bld) [Mass/Vol] 15.5 g/dL Normal 12.0-16.0 [facility] Comment on above: Performed By: #### B MP #### [facility] [address] [place] [address] Dr. Apurva Garcia IG # 0.05 10e3/ul Critically high 0.00-0.03 [facility] Comment on above: Performed By: #### B MP #### [facility] [address] [place] [address] Dr. Apurva Garcia IG % 0.5 % Normal 0.0-0.5 [facility] Comment on above: Performed By: #### B MP #### [facility] [address] [place] [address] Dr. Apurva Garcia LYMPH # 1.1 103/ul Critically low 1.2-3.8 [facility] Comment on above: Performed By: #### B MP #### [facility] [address] [place] [address] Dr. Apurva Garcia Lymphocytes/100 WBC (Bld) 9.6 % Critically low 20.5-60.0 [facility] Comment on above: Performed By: #### B MP #### [facility] [address] [place] [address] Dr. Apurva Garcia MANUAL DIFF REQ NO Normal [facility] Comment on above: Performed By: #### B MP #### [facility] [address] [place] [address] Dr. Apurva Garcia MCH (RBC) [Entitic mass] 31.4 pg Normal 26.7-34.0 [facility] Comment on above: Performed By: #### B MP #### [facility] [address] [place] [address] Dr. Apurva Garcia MCHC (RBC) [Mass/Vol] 33.2 g/dL Normal 29.9-35.2 [facility] Comment on above: Performed By: #### B MP #### [facility] [address] [place] [address] Dr. Apurva Garcia MCV (RBC) [Entitic vol] 94.5 fL Normal 81.0-99.0 [facility] Comment on above: Performed By: #### B MP #### [facility] [address] [place] [address] Dr. Apurva Garcia MONO # 0.5 103/ul Normal 0.3-0.8 [facility] Comment on above: Performed By: #### B MP #### [facility] [address] [address] [address] Apurva Garcia Monocytes/100 WBC (Bld) 4.2 % Normal 1.7-12.0 [facility] Comment on above: Performed By: #### B MP #### [facility] [address] [place] [address] Dr. Apurva Garcia NEUT # 9.4 103/ul Critically high 1.4-6.5 [facility] Comment on above: Performed By: #### B MP #### [facility] [address] [place] [address] Dr. Apurva Garcia Neutrophils/100 WBC (Bld) 85.1 % Critically high 43.0-75.0 [facility] Comment on above: Performed By: #### B MP #### [facility] [address] [place] [address] Dr. Apurva Garcia Platelet mean volume (Bld) [Entitic vol] 9.6 fL Normal 9.5-13.5 [facility] Comment on above: Performed By: #### B MP #### [facility] [address] [place] [address] Dr. Apuvra Garcia PLT 253 103/ul Normal 150-450 [facility] Comment on above: Performed By: #### B MP #### [facility] [address] [place] [address] Dr. Apurva Garcia RBC 4.94 106/ul Normal 4.20-5.40 [facility] Comment on above: Performed By: #### B MP #### [facility] [address] [place] [address] Dr. Apurva Garcia WBC 11.1 103/ul Critically high 4.0-11.0 [facility] Comment on above: Performed By: #### B MP #### [facility] [address] [place] [address] Dr. Apurva Garcia INSULINon 09-29-2021 Insulin 6.8 uIU/mL Normal 2.6-24.9 [facility] Comment on above: Performed By: #### B MP #### [facility] [address] [place] [address] Dr. Apurva Garcia LACTATE/LACTIC ACIDon 2021 Lactate [Moles/Vol] 1.0 mmol/L Normal 0.4-1.9 [facility] Comment on above: Performed By: #### L ACT #### [facility] [address] [place] [address] Dr. Apurva Garcia LIPASEon 09-29-2021 Lipase [Catalytic activity/Vol] 77.0 U/L Normal 73.0-393.0 [facility] Comment on above: Performed By: #### A MY, CMP, LIPA #### [facility] [address] [place] [address] Dr. Apurva Garcia PROF 14(COMP METB)on 022 Albumin [Mass/Vol] 3.6 g/dL Normal 3.4-5.0 [facility] Comment on above: Performed By: #### A MY, CMP, LIPA #### [facility] [address] [place] [address] Dr. Apurva Garcia Albumin/Globulin [Mass ratio] 0.8 {ratio} Normal [facility] Comment on above: Performed By: #### A MY, CMP, LIPA #### [facility] [address] [place] [address] Dr. Apurva Garcia ALP [Catalytic activity/Vol] 116 U/L Normal 46-116 [facility] Comment on above: Performed By: #### A MY, CMP, LIPA #### [facility] [address] [place] [address] Dr. Apurva Garcia ALT [Catalytic activity/Vol] 36 U/L Normal 14-59 [facility] Comment on above: Performed By: #### A MY, CMP, LIPA #### [facility] [address] [address] [address] Apurva Garcia Anion gap [Moles/Vol] 11.5 mmol/L Normal [facility] Comment on above: Performed By: #### A MY, CMP, LIPA #### [facility] [address] [place] [address] Dr. Apurva Garcia AST [Catalytic activity/Vol] 24 U/L Normal 15-37 [facility] Comment on above: Performed By: #### A MY, CMP, LIPA #### [facility] [address] [place] [address] Dr. Apurva Garcia Bilirubin [Mass/Vol] 0.8 mg/dL Normal 0.2-1.0 [facility] Comment on above: Performed By: #### A MY, CMP, LIPA #### [facility] [address] [place] [address] Dr. Apurva Garcia Calcium [Mass/Vol] 9.4 mg/dL Normal 8.5-10.1 [facility] Comment on above: Performed By: #### A MY, CMP, LIPA #### [facility] [address] [place] [address] Dr. Apurva Garcia Chloride [Moles/Vol] 96 mmol/L Critically low 98-107 [facility] Comment on above: Performed By: #### A MY, CMP, LIPA #### [facility] [address] [place] [address] Dr. Apurva Garcia CO2 [Moles/Vol] 29.1 mmol/L Normal 21.0-32.[address] [facility] Comment on above: Performed By: #### A MY, CMP, LIPA #### [facility] [address] [place] [address] Dr. Apurva Garcia Creatinine [Mass/Vol] 0.64 mg/dL Normal 0.55-1.02 [facility] Comment on above: Performed By: #### A MY, CMP, LIPA #### [facility] [address] [place] [address] Dr. Apurva Garcia EGFR-AF AFGHAN >60 Normal >=60 [facility] Comment on above: Performed By: #### A MY, CMP, LIPA #### [facility] [address] [place] [address] Dr. Apurva Garcia EGFR-NON AF AFGHAN >60 Normal >=60 [facility] Comment on above: Performed By: #### A MY, CMP, LIPA #### [facility] [address] [place] [address] Dr. Apurva Garcia Globulin (S) [Mass/Vol] 4.7 g/dL Normal [facility] Comment on above: Performed By: #### A MY, CMP, LIPA #### [facility] [address] [place] [address] Dr. Apurva Garcia Glucose [Mass/Vol] 145 mg/dL Critically high 74-106 [facility] Comment on above: Performed By: #### A MY, CMP, LIPA #### [facility] [address] [place] [address] Dr. Apurva Garcia Potassium [Moles/Vol] 3.6 mmol/L Normal 3.5-5.1 [facility] Comment on above: Performed By: #### A MY, CMP, LIPA #### [facility] [address] [place] [address] Dr. Apurva Garcia Protein [Mass/Vol] 8.3 g/dL Critically high 6.4-8.2 [facility] Comment on above: Performed By: #### A MY, CMP, LIPA #### [facility] [address] [place] [address] Dr. Apurva Garcia Sodium [Moles/Vol] 133 mmol/L Critically low 136-145 [facility] Comment on above: Performed By: #### A MY, CMP, LIPA #### [facility] [address] [place] [address] Dr. Apurva Garcia Urea nitrogen [Mass/Vol] 13.0 mg/dL Normal 7.0-18.0 [facility] Comment on above: Performed By: #### A MY, CMP, LIPA #### [facility] [address] [address] [address] Apurva Garcia Urea nitrogen/Creatinine [Mass ratio] 20.3 mg/mg Normal [facility] Comment on above: Performed By: #### A MY, CMP, LIPA #### [facility] [address] [address] [address] Apurva Garcia T4, T3U, FTI LABCORPon 09-29 Free Thyroxine Index 2.7 Normal 1.2-4.9 [facility] Comment on above: Performed By: #### A MY, CMP, LIPA #### [facility] [address] [address] [address] Apurva Garcia T3 Uptake 32 % Normal 24-39 [facility] Comment on above: Performed By: #### A MY, CMP, LIPA #### [facility] [address] [address] [address] Apurva Garcia T4 [Mass/Vol] 8.3 ug/dL Normal 4.5-12.0 [facility] Comment on above: Performed By: #### A MY, CMP, LIPA #### [facility] [address] [address] [address] Apurva Garcia US SINGLE QUAD RT UPPERon US SINGLE QUAD RT UPPER EXAMINATION: US SINGLE QUAD RT UPPER HISTORY: Abdominal pain COMPARISON: No relevant comparison available. TECHNIQUE: Transabdominal evaluation of the right upper quadrant. FINDINGS: LIVER: Normal size and echotexture. Color Doppler demonstrates patent hepatic veins. PORTAL VEIN: Duplex Doppler demonstrates normal hepatopetal flow pattern with flow velocity averaging 20 cm/s. GALLBLADDER: 18 mm stone within the gallbladder fundus. No appreciable wall thickening or free fluid. BILIARY: No abnormal dilation or stones. Common bile duct diameter is within normal limits. PANCREASE: No visible mass, abnormal atrophy, or duct dilation. KIDNEY: No hydronephrosis. No visible mass or stones. Size: 10.6 x 3.8 x 4.5 cm IMPRESSION: 1. Cholelithiasis without appreciable acute cholecystitis. Electronically authenticated by: KIAH KULKARNI Date: 2021-09-29 15:26 Normal [facility] CBC AUTO DIFFon 09-28-2021 BASO # 0.1 103/ul Normal 0.0-0.1 [facility] Comment on above: Performed By: #### B MP #### [facility] [address] [place] [address] Dr. Apurva Garcia Basophils/100 WBC (Bld) 0.5 % Normal 0.2-2.0 [facility] Comment on above: Performed By: #### B MP #### [facility] [address] [place] [address] Dr. Apurva Garcia EO # 0.1 103/ul Normal 0.0-0.7 [facility] Comment on above: Performed By: #### B MP #### [facility] [address] [place] [address] Dr. Apurva Garcia Eosinophils/100 WBC (Bld) 0.5 % Critically low 0.9-7.0 [facility] Comment on above: Performed By: #### B MP #### [facility] [address] [place] [address] Dr. Apurva Garcia Erythrocyte distribution width (RBC) [Ratio] 14.0 % Normal 11.0-15.0 [facility] Comment on above: Performed By: #### B MP #### [facility] [address] [place] [address] Dr. Apurva Garcia Hematocrit (Bld) [Volume fraction] 46.9 % Normal 36.0-48.0 [facility] Comment on above: Performed By: #### B MP #### [facility] [address] [place] [address] Dr. Apurva Garcia Hemoglobin (Bld) [Mass/Vol] 15.7 g/dL Normal 12.0-16.0 [facility] Comment on above: Performed By: #### B MP #### [facility] [address] [place] [address] Dr. Apurva Garcia IG # 0.04 10e3/ul Critically high 0.00-0.03 [facility] Comment on above: Performed By: #### B MP #### [facility] [address] [place] [address] Dr. Apurva Garcia IG % 0.4 % Normal 0.0-0.5 [facility] Comment on above: Performed By: #### B MP #### [facility] [address] [place] [address] Dr. Apurva Garcia LYMPH # 1.9 103/ul Normal 1.2-3.8 [facility] Comment on above: Performed By: #### B MP #### [facility] [address] [place] [address] Dr. Apurva Garcia Lymphocytes/100 WBC (Bld) 17.6 % Critically low 20.5-60.0 [facility] Comment on above: Performed By: #### B MP #### [facility] [address] [place] [address] Dr. Apurva Garcia MANUAL DIFF REQ NO Normal [facility] Comment on above: Performed By: #### B MP #### [facility] [address] [place] [address] Dr. Apurva Garcia MCH (RBC) [Entitic mass] 32.1 pg Normal 26.7-34.0 [facility] Comment on above: Performed By: #### B MP #### [facility] [address] [place] [address] Dr. Apurva Garcia MCHC (RBC) [Mass/Vol] 33.5 g/dL Normal 29.9-35.2 [facility] Comment on above: Performed By: #### B MP #### [facility] [address] [place] [address] Dr. Apurva Garcia MCV (RBC) [Entitic vol] 95.9 fL Normal 81.0-99.0 [facility] Comment on above: Performed By: #### B MP #### [facility] [address] [place] [address] Dr. Apurva Garcia MONO # 1.0 103/ul Critically high 0.3-0.8 [facility] Comment on above: Performed By: #### B MP #### [facility] [address] [place] [address] Dr. Apurva Garcia Monocytes/100 WBC (Bld) 9.1 % Normal 1.7-12.0 [facility] Comment on above: Performed By: #### B MP #### [facility] [address] [address] [address] Apurva Garcia NEUT # 7.9 103/ul Critically high 1.4-6.5 [facility] Comment on above: Performed By: #### B MP #### [facility] [address] [address] [address] Apurva Garcia Neutrophils/100 WBC (Bld) 71.9 % Normal 43.0-75.0 [facility] Comment on above: Performed By: #### B MP #### [facility] [address] [place] [address] Dr. Apurva Garcia Platelet mean volume (Bld) [Entitic vol] 9.2 fL Critically low 9.5-13.5 [facility] Comment on above: Performed By: #### B MP #### [facility] [address] [address] [address] Apurva Garcia PLT 225 103/ul Normal 150-450 [facility] Comment on above: Performed By: #### B MP #### [facility] [address] [place] [address] Dr. Apurva Garcia RBC 4.89 106/ul Normal 4.20-5.40 [facility] Comment on above: Performed By: #### B MP #### [facility] [address] [place] [address] Dr. Apurva Garcia WBC 11.0 103/ul Normal 4.0-11.0 [facility] Comment on above: Performed By: #### B MP #### [facility] [address] [place] [address] Dr. Apurva Garcia GLYCOHEMOGLOBIN A1Con 2021 ADA RECOMMENDATION SEE BELOW Normal [facility] Comment on above: Result Comment: ADA RECOMMENDED LIMIT 4.0 - 6.0 ADA THERAPEUTIC TARGET < 7.0 ACTION SUGGESTED > 7.0 Performed By: #### A MY, CMP, LIPA #### [facility] [address] [place] [address] Dr. Apurva Garcia Glucose [Mass/Vol] 114 mg/dL Normal [facility] Comment on above: Performed By: #### A MY, CMP, LIPA #### [facility] [address] [address] [address] Apurva Garcia HbA1c (Bld) [Mass fraction] 5.6 % Normal 4.5-6.2 [facility] Comment on above: Performed By: #### A MY, CMP, LIPA #### [facility] [address] [address] [address] Apurva Garcia IRONon 09-28-2021 Iron [Mass/Vol] 15.0 ug/dL Critically low 50.0-170.0 [facility] Comment on above: Performed By: #### B MP #### [facility] [address] [place] [address] Dr. Apurva Garcia LIPID PROFILEon 09-28-2021 CHOL-HDL RATIO NORM SEE BELOW Normal [facility] Comment on above: Result Comment: 3.3 - 4.4 LOW RISK 4.4 - 7.1 AVERAGE RISK 7.1 - 11.0 MODERATE RISK >11.0 HIGH RISK Performed By: #### A MY, CMP, LIPA #### [facility] [address] [place] [address] Dr. Apurva Garcia Cholesterol [Mass/Vol] 170 mg/dL Normal <=200 [facility] Comment on above: Performed By: #### A MY, CMP, LIPA #### [facility] [address] [address] [address] Apurva Garcia Cholesterol in HDL [Mass/Vol] 53 mg/dL Normal 40-60 [facility] Comment on above: Performed By: #### A MY, CMP, LIPA #### [facility] [address] [address] [address] Apurva Garcia Cholesterol in LDL [Mass/Vol] 104.6 mg/dL Normal [facility] Comment on above: Performed By: #### A MY, CMP, LIPA #### [facility] [address] [place] [address] Dr. Apurva Garcia Cholesterol.total/Ch olesterol in HDL [Mass ratio] 3.2 {ratio} Normal [facility] Comment on above: Performed By: #### A MY, CMP, LIPA #### [facility] [address] [address] [address] Apurva Garcia HDL NORMAL > or = 60 mg/dl - LO W CARDIOVASCULAR RISK <40 mg/dl - HIGH CARDIOVASCULAR RISK Normal [facility] Comment on above: Performed By: #### A MY, CMP, LIPA #### [facility] [address] [address] [address] Apurva Garcia LDL CALC NORMAL SEE BELOW Normal [facility] Comment on above: Result Comment: <100 mg/dl OPTIMAL 100 - 129 mg/dl NEAR OR ABOVE OPTIMAL 130 - 159 mg/dl BORDERLINE HIGH 160 - 189 mg/dl HIGH >190 mg/dl VERY HIGH Performed By: #### A MY, CMP, LIPA #### [facility] [address] [address] [address] Apurva Garcia Triglyceride [Mass/Vol] 62 mg/dL Normal <=150 [facility] Comment on above: Performed By: #### A MY, CMP, LIPA #### [facility] [address] [place] [address] Dr. Apurva Garcia VLDL CALC 12.4 mg/dL Normal [facility] Comment on above: Performed By: #### A MY, CMP, LIPA #### [facility] [address] [place] [address] Dr. Apurva Garcia PROF 14(COMP METB)on 022 Albumin [Mass/Vol] 3.8 g/dL Normal 3.4-5.0 [facility] Comment on above: Performed By: #### A MY, CMP, LIPA #### [facility] [address] [place] [address] Dr. Apurva Garcia Albumin/Globulin [Mass ratio] 0.9 {ratio} Normal [facility] Comment on above: Performed By: #### A MY, CMP, LIPA #### [facility] [address] [place] [address] Dr. Apurva Garcia ALP [Catalytic activity/Vol] 110 U/L Normal 46-116 [facility] Comment on above: Performed By: #### A MY, CMP, LIPA #### [facility] [address] [address] [address] Apurva Garcia ALT [Catalytic activity/Vol] 34 U/L Normal 14-59 [facility] Comment on above: Performed By: #### A MY, CMP, LIPA #### [facility] [address] [place] [address] Dr. Apurva Garcia Anion gap [Moles/Vol] 11.7 mmol/L Normal [facility] Comment on above: Performed By: #### A MY, CMP, LIPA #### [facility] [address] [place] [address] Dr. Apurva Garcia AST [Catalytic activity/Vol] 28 U/L Normal 15-37 [facility] Comment on above: Performed By: #### A MY, CMP, LIPA #### [facility] [address] [place] [address] Dr. Apurva Garcia Bilirubin [Mass/Vol] 1.1 mg/dL Critically high 0.2-1.0 [facility] Comment on above: Performed By: #### A MY, CMP, LIPA #### [facility] [address] [place] [address] Dr. Apurva Garcia Calcium [Mass/Vol] 9.2 mg/dL Normal 8.5-10.1 [facility] Comment on above: Performed By: #### A MY, CMP, LIPA #### [facility] [address] [place] [address] Dr. Apurva Garcia Chloride [Moles/Vol] 98 mmol/L Normal 98-107 [facility] Comment on above: Performed By: #### A MY, CMP, LIPA #### [facility] [address] [place] [address] Dr. Apurva Garcia CO2 [Moles/Vol] 29.9 mmol/L Normal 21.0-32.[address] [facility] Comment on above: Performed By: #### A MY, CMP, LIPA #### [facility] [address] [address] [address] Apurva Garcia Creatinine [Mass/Vol] 0.76 mg/dL Normal 0.55-1.02 [facility] Comment on above: Performed By: #### A MY, CMP, LIPA #### [facility] [address] [address] [address] Apurva Garcia EGFR-AF AFGHAN >60 Normal >=60 [facility] Comment on above: Performed By: #### A MY, CMP, LIPA #### [facility] [address] [address] [address] Apurva Garcia EGFR-NON AF AFGHAN >60 Normal >=60 [facility] Comment on above: Performed By: #### A MY, CMP, LIPA #### [facility] [address] [address] [address] Apurva Garcia Globulin (S) [Mass/Vol] 4.3 g/dL Normal [facility] Comment on above: Performed By: #### A MY, CMP, LIPA #### [facility] [address] [address] [address] Apurva Garcia Glucose [Mass/Vol] 113 mg/dL Critically high 74-106 [facility] Comment on above: Performed By: #### A MY, CMP, LIPA #### [facility] [address] [address] [address] Apurva Garcia Potassium [Moles/Vol] 3.6 mmol/L Normal 3.5-5.1 [facility] Comment on above: Performed By: #### A MY, CMP, LIPA #### [facility] [address] [address] [address] Apurva Garcia Protein [Mass/Vol] 8.1 g/dL Normal 6.4-8.2 [facility] Comment on above: Performed By: #### A MY, CMP, LIPA #### [facility] [address] [address] [address] Apurva Garcia Sodium [Moles/Vol] 136 mmol/L Normal 136-145 [facility] Comment on above: Performed By: #### A MY, CMP, LIPA #### [facility] [address] [place], [place] [address] Dr. Apurva Garcia Urea nitrogen [Mass/Vol] 9.0 mg/dL Normal 7.0-18.0 [facility] Comment on above: Performed By: #### A MY, CMP, LIPA #### [facility] [address] [address] [address] Apurva Garcia Urea nitrogen/Creatinine [Mass ratio] 11.8 mg/mg Normal [facility] Comment on above: Performed By: #### A MY, CMP, LIPA #### [facility] [address] [address] [address] Apurva Garcia TSHon 09-28-2021 TSH 0.644 uIU/mL Normal 0.358-3.740 [facility] Comment on above: Performed By: #### A MY, CMP, LIPA #### [facility] [address] [address] [address] Apurva Garcia Vital Signs Date Time Vital Sign Value Performing Clinician Faci lity 05-10-2023 08:18-0400 Body height 162.56 cm [employer] ADVISOR-C Peri Conte Work Phone: [facility] Encounters Encounter Date Encounter Type Care Provider Facility Start: 08-15-2023 End: 08-15-2023 ambulatory [facility] Work Phone: Start: 08-15-2023 End: 08-15-2023 Patient encounter procedure [facility] Work Phone: Start: 06-20-2023 End: 06-20-2023 Patient encounter procedure [facility] Work Phone: Start: 05-10-2023 End: 05-10-2023 ambulatory [employer]-C Peri Conte Work Phone: [facility] Work Phone: Start: 05-10-2023 End: 05-10-2023 Patient encounter procedure [employer]ING ADVISOR-C Peri Conte Work Phone: [facility] Work Phone: Start: 06-15-2022 End: 06-15-[address] ARCELIA SMITH . Facility:[facility] Start: 02-08-2022 End: 02-08-[address] ARCELIA SMITH . Facility: Start: 10-20-2021 End: 10-21-2021 ambulatory Jamil Ricardo RADHA Facility:[facility] Start: 10-20-2021 End: 10-20-2021 Patient encounter procedure Jamil Silva RADHA [facility] Start: 10-07-2021 End: 10-10-[address] ARCELIA SMITH . Facility: Start: 10-03-2021 End: 10-03-[address] ARCELIA SMITH . Facility: Start: 09-30-2021 Encounter for genera l adult medical examination without abnormal findings PERI CONTE [facility] Start: 09-29-2021 End: 09-29-[address] ARCELIA SMITH . Facility: Start: 09-28-2021 End: 09-29-2021 ambulatory PERI CONTE Facility: Start: 09-28-2021 End: 09-29-2021 Encounter for general adult medical examination without abnormal findings PERI CONTE Facility: Procedures Date Procedure Procedure Detail Performing Clinician Start: 05-10-2023 Plain X-ray of right hand [employer] ADVIS[employer]-C Peri Conte Work Phone: Start: 05-10-2023 Plain X-ray of left forearm [employer] ADVISOR-C Peri Conte Work Phone: section Jamil NIL L Hysterectomy Jamil NILL Re-release of carpal tunnel Jamil NILL Tonsillectomy Jamil NILL Plan of Treatment Date Care Activity Detail Author Start: 05-10-2023 Plain X-ray of right hand XR hand RT min 3V* [facility] Start: 05-10-2023 XR Hand - right GE 3 Views [facility] Start: 05-10-2023 Plain X-ray of left forearm XR forearm LT 2V* [facility] Start: 05-10-2023 XR Radius and Ulna - left 2 Views [facility] Immunizations Immunization Date Immunization Notes Care Provider Jerry aponte 12-28-2018 influenza virus vaccine, live, attenuated, for intranasal use Jamil GARCIA [facility] [place] Payers Date Payer Category Payer Self-pay 1975 Unknown [id number] [id number] 1975 Unknown [id number] 2.16.84 [id number] 1975 Unknown [id number] 2.16.84 [id number] 1976 Unknown [id number] 2.16.84 [id number] 1976 Unknown [id number] 2.16.84 [id number] 1976 Unknown [id number] 2.16.84 [id number] 1976 Unknown [id number] 2.16.84 [id number] 1959 Unknown [id number] 1959 Unknown [id number] Unknown [id number] 2.16.8 [id number] Social History Date Type Detail Facility Start: 02-22-2019 Tobacco smoking status Heavy t obacco smoker (finding) [facility] Tobacco smoking status Never [facility] Sex Assigned At Female [facility] Start: 05-10-2023 Tobacco smoking stat us NHIS Smoker (finding) [facility] Start: 1975 Sex Assigned At Female F [facility] Evaluation + Plan note Note Date & Type Note Facility Evaluation + Plan note No data available for this section [facility] [place] Evaluation note Note Date & Type Note Facility Evaluation note Diagnosis Onset Date Arthritis of right hand acut e Left elbow pain acute Left lateral epicondylitis a cute Right hand pain acute Scar tissue acute Stiffness of right hand joint acute [facility] Work Phone: Evaluation note Note Date & Type Note Facility Evaluation note Diagnosis Onset Date Arthritis of right hand acut e Left elbow pain acute Left lateral epicondylitis a cute Right hand pain acute Scar tissue acute Stiffness of right hand joint acute Arthritis of right hand acut e Left elbow pain acute Left lateral epicondylitis a cute Right hand pain acute Scar tissue acute Stiffness of right hand joint acute [facility] Work Phone: Hospital Discharge instructions Note Date & Type Note Facility Hospital Discharge instructions No data available for this section [facility] [place] Progress note Note Date & Type Note Facility Progress note No data available for this section [facility] [place] Summary Purpose Family History No Family History Records Found Relationship Condition Age at Onset Recorded Date/T bibi Not Specified Myocardial infarction Unknown Hypertension Unknown Advance Directives No Advanced Directives Records Found Advance Directive Response Recorded Date/ Time Advance Directives No May 08 9:11am Chief Complaint and Reason for Visit Chief Complaint CONSULT PERI Silva M79.641 - Pain in right hand Reason for Visit Arthritis of right h and Left elbow pain Left lateral epicondylitis Right hand pain Scar tissue Stiffness of right hand joint Chief Complaint 4-6 WEEKS 6-8 WEEK RECHECK Reason for Visit Arthritis of right h and Left elbow pain Left lateral epicondylitis Right hand pain Scar tissue Stiffness of right hand joint Arthritis of right hand Left elbow pain Left lateral epicondylitis Right hand pain Scar tissue Stiffness of right hand joint Additional Source Comments Care Team (unrecognized sect ion and content) Team Status: Active Member Role Status Dates STACEY Zapien Primary Care Provider Active Team Status: Inactive Member Role Status Dates Peri Misa Josette , PERSONAL BANKING ADVISOR-C Primary Care Provider Active Start: May 10, 2023 End: May 10, 2023 Danna Edmonds MD Attending Provider Active Start: May 10, 2023 End: May 10, 2023 Team Status: Active Member Role Status Dates Danna Edmonds MD Attending Provider Active Start: May 10, 2023 Peir Conte NP-C Primary Care Provider Active Start: May 10, 2023 Team Status: Inactive Member Role Status Dates Danna Edmonds MD Attending Provider Active Start: May 10, 2023 End: May 10, 2023 Peri Conte NP-C Primary Care Provider Active Start: May 10, 2023 End: May 10, 2023 Team Status: Inactive Member Role Status Dates Peri Conte NP-Muna Primary Care Provider Active Start: June 20, 2023 End: June 20, 2023 Danna Edmonds MD Attending Provider Active Start: June 20, 2023 End: June 20, 2023 Team Status: Inactive Member Role Status Dates Peri Conte NP-C Primary Care Provider Active Start: August 15, 2023 End: August 15, 2023 Danna Edmonds MD Attending Provider Active Start: August 15, 2023 End: August 15, 2023 INFORMATION SOURCE (unrecogn ized section and content) DATE CREATED AUTHOR 11/03/2021 [facility] DATE CREATED AUTHOR AUTHOR'S ORGANIZ ATION 06/18/2022 [facility] DATE CREATED AUTHOR AUTHOR'S ORGANIZ ATION 09/06/2023 [facility] Goals (unrecognized section and content) Goals may be documented in a n alternate section FOR RECORDS PERTAINING TO PATIENTS WHO ARE OR HAVE BEEN ENROLLED IN A CHEMICAL DEPENDENCY/SUBSTANCEABUSE PROGRAM, SOME INFORMATION MAY BE OMITTED. This clinical summary was aggregated from multiple sources. Caution should be exercised in using it in the provision of clinical care. This summary normalizes information from multiple sources, and as a consequence, information in this document may materially change the coding, format and clinical context of patient data. In addition, data may be omitted in some cases. CLINICAL DECISIONS SHOULD BE BASED ON THE PRIMARY CLINICAL RECORDS. [facility] [employer] provides no warranty or guarantee of the accuracy or completeness of information in this document.
[2024-02-16 10:35] LABS: Basophils Absolute Auto 0.1 10^3/uL (0.0-0.1); Basophils Percent Auto 0.6 % (0.2-2.0); Eosinophils Absolute Auto 0.2 10^3/uL (0.0-0.7); Hematocrit 46.7 % (36.0-48.0); Hemoglobin 15.3 g/dL (12.0-16.0); Immature Granulocytes Abs Auto 0.01 10^3/uL (0.00-0.03); Immature Granulocytes Pct Auto 0.1 % (0.0-0.5); Lymphocytes Absolute Auto 2.3 10^3/uL (1.2-3.8); Lymphocytes Percent Auto 28.6 % (20.5-60.0); Mean Corpuscular HGB Conc 32.8 g/dL (29.9-35.2); Mean Corpuscular Volume 94.7 fL (81.0-99.0); Mean Platelet Volume 10.1 fL (9.5-13.5); Monocytes Absolute Auto 0.4 10^3/uL (0.3-0.8); Monocytes Percent Auto 4.4 % (1.7-12.0); Neutrophils Absolute Auto 5.1 10^3/uL (1.4-6.5); Neutrophils Percent Auto 64.3 % (43.0-75.0); Platelet Count 269 10^3/uL (150-450); Red Blood Count 4.93 10^6/uL (4.20-5.40); Red Cell Distribution Width 13.6 % (11.0-15.0); White Blood Count 7.9 10^3/uL (4.0-11.0)
[2024-02-16 11:28] LABS: Estimated Average Glucose 114 mg/dL; Glycohemoglobin A1C 5.6 % (4.5-6.2)
[2024-02-16 13:48] LABS: Alanine Aminotransferase 27 U/L (14-59); Albumin Globulin Ratio 1.1; Albumin Level 3.8 g/dL (3.4-5.0); Alkaline Phosphatase 93 U/L (46-116); Anion Gap 13.8; Aspartate Amino Transferase 21 U/L (15-37); BUN Creatinine Ratio 15.5; Calcium 9.4 mg/dL (8.5-10.1); Carbon Dioxide 29.1 mmol/L (21.0-32.0); Chloride 104 mmol/L (98-107); Chol HDL Ratio 3.3; Cholesterol 189 mg/dL (<=200); Estimated GFR (African America >60 (>=60 mL/min/1.73m^2); Estimated GFR (Non-African Ame >60 (>=60 mL/min/1.73m^2); Free T3 3.06 pg/mL (2.18-3.98); Globulin 3.4 g/dL; Glucose 100 mg/dL (74-106); HDL Cholesterol 57 mg/dL (40-60); LDL Cholesterol Calculated 114.2 mg/dL; Potassium 3.9 mmol/L (3.5-5.1); Sodium 143 mmol/L (136-145); Thyroid Stimulating Hormone 1.033 uIU/mL (0.358-3.740); Total Protein 7.2 g/dL (6.4-8.2); Triglycerides 89 mg/dL (<=150); VLDL CHOLESTEROL 17.8 mg/dL
[2024-02-17 09:07] LABS: Insulin 5.6 uIU/mL (2.6-24.9)
[2024-02-17 23:00] LABS: Bilirubin Total 0.7 mg/dL (0.2-1.0)
== END 2024-02-16 09:33 | disposition home or self-care (01) ==
LOC: LAB 09:34
PROVIDERS: PCP Family Medicine; Visit Provider Nurse Practitioner Family
DX: Z00.00 Encounter for general adult medical examination without abnormal findings (principal)
CPT/HCPCS: 36415; 80053; 80061; 82306; 83036; 83525; 83540; 84436; 84443; 84481; 85025